=== PATIENT | male | born 1950 | race Caucasian/White ===

== ENCOUNTER 2019-11-08 11:21 | Outpatient (CLI) | payer MEDICARE, OTHER, SELFPAY | END 2019-11-08 11:22 | disposition home or self-care (01) | LOC: RADWPI 11-10 10:04 | PROVIDERS: Family Provider Electrodiagnostic Medicine; PCP Electrodiagnostic Medicine; Visit Provider Anesthesiology Pain Medicine | DX: M48.062 Spinal stenosis, lumbar region with neurogenic claudication (principal); M51.17 Intervertebral disc disorders with radiculopathy, lumbosacral region; Z79.891 Long term (current) use of opiate analgesic | CPT/HCPCS: 99203; 99999 ==

== ENCOUNTER → 2019-11-10 13:00 | Outpatient (BNVA) | payer MEDICARE, OTHER, SELFPAY | PROVIDERS: Family Provider Electrodiagnostic Medicine; PCP Electrodiagnostic Medicine; Visit Provider Anesthesiology Pain Medicine | DX: M51.17 Intervertebral disc disorders with radiculopathy, lumbosacral region (principal); M48.062 Spinal stenosis, lumbar region with neurogenic claudication | CPT/HCPCS: 64483; 64484; J1030; J2001; J3490 ==

== ENCOUNTER 2019-11-11 13:32 | Outpatient (CLI) | payer MEDICARE, OTHER, SELFPAY ==
--- NOTE | 2019-11-11 14:10 | XR_ITS ---
WS: [id number] LATERAL LUMBAR SPINE: 3 view. Lateral radiographs are performed in upright neutral, flexion and extension to the patient's toleranc e. HISTORY: INTERVERTEBRAL DISC DISORDER WITH RADICULOPATHY OF LUMBOSACRAL SPINE. COMPARISON: None available. Normal posterior lumbar alignment. Small osteophytes at the endplates throughout the lumbar spine. Mo derate disc space narrowing L4-5 and L5-S1. With flexion and extension there is no instability. There is very slight retrolisthesis of L2 and L3 with no progression during flexion or extension. Scattered calcification within the aorta. XR/XR lumbar spine f/e only [id number] IMPRESSION: 1. No lumbar spine instability. 2. Moderate degenerative disc disease at L4-5 and L5-S1 with diffuse endplate osteophytes.
== END 2019-11-11 13:33 | disposition home or self-care (01) ==
LOC: RADWPI 13:38
PROVIDERS: Family Provider Electrodiagnostic Medicine; PCP Electrodiagnostic Medicine; Visit Provider Licensed Practical Nurse
DX: M51.17 Intervertebral disc disorders with radiculopathy, lumbosacral region (principal); M47.896 Other spondylosis, lumbar region
CPT/HCPCS: 72120

== ENCOUNTER 2019-11-14 12:44 | Outpatient (CLI) | payer MEDICARE, OTHER, SELFPAY ==
--- NOTE | 2019-11-14 13:04 | MR_ITS ---
WS: [id number] MRI LUMBAR SPINE WITH AND WITHOUT CONTRAST HISTORY: Low back pain COMPARISON: None available. TECHNIQUE: Sagittal and axial multisequence imaging is submitted. Sagittal and axial T1 fat sat seque nces post-ProHance 17 cc IV. Increase in cervical lordosis and thoracic kyphosis. Chronic changes with no interval change. Again noted is lumbarization of S1. Posterior lumbar vertebral bodies are normally aligned. No marrow edema or acute fracture. Mild disc desiccation. Conus terminates normally at L1-2 disc level. L1-L2: Normal. L2-L3: Very mild annular disc bulging with facet and ligamentum flavum arthropathy. No stenosis. L3-L4: Mild annular disc bulging with facet and ligamentum flavum arthropathy. No significant stenosi s. L4-L5: Diffuse annular disc bulging. There is mild ligamentum flavum hypertrophy and facet arthropath y and osteophytes. No significant stenosis. L5-S1: Mild asymmetric disc bulging with a shallow LEFT paracentral protrusion. Annular fissure centr ally with disc extending greatest to the LEFT foramen. There is very slight encroachment upon the LEF T S1 nerve root and posterior displacement within the subarticular recesses. Similar to the prior exa mination. Moderate LEFT subarticular recess and mild LEFT foraminal stenosis. Postcontrast images are also obtained. There is no discitis or osteomyelitis. Laminectomy defect at t he L4-5 level demonstrates normal postoperative long-term changes. No recurrent disc protrusion. Bilateral renal cysts. The largest on the LEFT measures 3.0 cm. Mild atherosclerosis aorta. MR/MR lumbar spine wo/w con [id number] IMPRESSION: 1. Moderate LEFT subarticular recess disc bulging and small protrusion at L5-S 1. There is at least moderate LEFT subarticular recess and mild LEFT foraminal stenosis due to combination of disc and osteophyte disease and facet disease. S imilar to the study of 07/12/2019. 2. No discitis or osteomyelitis. 3. Otherwise no significant central or foraminal stenosis.
== END 2019-11-14 12:45 | disposition home or self-care (01) ==
LOC: RADSHAW 12:48
PROVIDERS: Family Provider Electrodiagnostic Medicine; PCP Electrodiagnostic Medicine; Visit Provider Licensed Practical Nurse
DX: M51.17 Intervertebral disc disorders with radiculopathy, lumbosacral region (principal); M25.78 Osteophyte, vertebrae
CPT/HCPCS: 72158; A9579

== ENCOUNTER → 2019-11-17 08:36 | Outpatient (BNVA) | payer MEDICARE, OTHER, SELFPAY | PROVIDERS: Family Provider Electrodiagnostic Medicine; PCP Electrodiagnostic Medicine; Visit Provider Anesthesiology Pain Medicine | DX: M48.062 Spinal stenosis, lumbar region with neurogenic claudication (principal); M79.604 Pain in right leg | CPT/HCPCS: 99214 ==

== ENCOUNTER → 2019-12-08 09:50 | Outpatient (BNVA) | payer MEDICARE, OTHER, SELFPAY | PROVIDERS: Family Provider Electrodiagnostic Medicine; PCP Electrodiagnostic Medicine; Visit Provider Anesthesiology Pain Medicine | DX: M48.062 Spinal stenosis, lumbar region with neurogenic claudication (principal) | CPT/HCPCS: 99213 ==

== ENCOUNTER → 2020-02-02 10:57 | Outpatient (BNVA) | payer MEDICARE, OTHER, SELFPAY | PROVIDERS: Family Provider Electrodiagnostic Medicine; PCP Electrodiagnostic Medicine; Visit Provider Anesthesiology Pain Medicine | DX: M54.41 Lumbago with sciatica, right side (principal); M48.062 Spinal stenosis, lumbar region with neurogenic claudication | CPT/HCPCS: 99213 ==

== ENCOUNTER → 2020-02-13 14:56 | Outpatient (BNVA) | payer MEDICARE, OTHER, SELFPAY | PROVIDERS: Family Provider Electrodiagnostic Medicine; PCP Electrodiagnostic Medicine; Visit Provider Anesthesiology Pain Medicine | DX: M51.17 Intervertebral disc disorders with radiculopathy, lumbosacral region (principal); M48.062 Spinal stenosis, lumbar region with neurogenic claudication; Z79.891 Long term (current) use of opiate analgesic | CPT/HCPCS: 64483; 64484; J1040; J2001; J3490 ==

== ENCOUNTER → 2020-03-01 13:57 | Outpatient (BNVA) | payer MEDICARE, OTHER, SELFPAY | PROVIDERS: Family Provider Electrodiagnostic Medicine; PCP Electrodiagnostic Medicine; Visit Provider Anesthesiology Pain Medicine | DX: M48.062 Spinal stenosis, lumbar region with neurogenic claudication (principal); M51.17 Intervertebral disc disorders with radiculopathy, lumbosacral region; M51.9 Unspecified thoracic, thoracolumbar and lumbosacral intervertebral disc disorder; Z79.891 Long term (current) use of opiate analgesic | CPT/HCPCS: 99214 ==

== ENCOUNTER 2021-05-29 07:57 | Outpatient (CLI) | payer MEDICARE, OTHER, SELFPAY ==
[2021-05-29 08:06] VITALS: BP 153/92; PULSE 93; RESP 24; TEMP 36.8; O2SAT 96; BMI 26.9
[2021-05-29 08:48] VITALS: BP 160/87; PULSE 91; RESP 24; TEMP 37.2; O2SAT 95
[2021-05-29 09:37] VITALS: BP 167/102; PULSE 92; RESP 18; TEMP 37.8; O2SAT 96
== END 2021-05-29 07:58 | disposition home or self-care (01) ==
LOC: OPS 08:05
PROVIDERS: PCP Electrodiagnostic Medicine; Visit Provider Electrodiagnostic Medicine
DX: U07.1 COVID-19 (principal)
CPT/HCPCS: 96365

== ENCOUNTER → 2021-08-26 13:23 | Outpatient (BNVA) | payer MEDICARE, OTHER, SELFPAY | PROVIDERS: PCP Electrodiagnostic Medicine; Visit Provider Internal Medicine | DX: E11.40 Type 2 diabetes mellitus with diabetic neuropathy, unspecified (principal); E11.65 Type 2 diabetes mellitus with hyperglycemia; E78.5 Hyperlipidemia, unspecified; Z79.84 Long term (current) use of oral hypoglycemic drugs; Z87.891 Personal history of nicotine dependence | CPT/HCPCS: 99204 ==

== ENCOUNTER → 2021-10-02 10:49 | Outpatient (BNVA) | payer MEDICARE, OTHER, SELFPAY | PROVIDERS: PCP Electrodiagnostic Medicine; Visit Provider Internal Medicine | DX: E11.65 Type 2 diabetes mellitus with hyperglycemia (principal); E11.40 Type 2 diabetes mellitus with diabetic neuropathy, unspecified; E78.5 Hyperlipidemia, unspecified; Z79.84 Long term (current) use of oral hypoglycemic drugs | CPT/HCPCS: 99213 ==

== ENCOUNTER → 2021-12-31 13:15 | Outpatient (BNVA) | payer MEDICARE, OTHER, SELFPAY | PROVIDERS: PCP Electrodiagnostic Medicine; Visit Provider Internal Medicine | DX: E11.42 Type 2 diabetes mellitus with diabetic polyneuropathy (principal); E11.65 Type 2 diabetes mellitus with hyperglycemia; E78.2 Mixed hyperlipidemia; Z79.84 Long term (current) use of oral hypoglycemic drugs | CPT/HCPCS: 99214 ==

== ENCOUNTER 2022-08-19 09:10 | Emergency (ER) | payer MEDICARE, OTHER, SELFPAY ==
[2022-08-19 09:29] VITALS: BP 131/69; PULSE 95; RESP 17; TEMP 36.5; O2SAT 93; BMI 22.2
[2022-08-19 09:48] VITALS: BP 116/92; PULSE 95; RESP 18; O2SAT 97
--- NOTE | 2022-08-19 10:01 | W.ED.HA ---
HPI - Headache General: Chief Complaint: Headache Stated Complaint: head pain, unsteady, dizziness Time Seen by Provider: 08/19/22 10:00 History of Present Illness: Mr. Chester is a 71-year-old gentleman with history of hypertension, hyperlipidemia, diabetes presenting to the emergency department due to head pain. Reports onset of symptoms approximately 4 days ago gradually. He endorses pain at the top of his head which has been unrelenting since that time. Intensity of symptoms is severe. Quality is aching and at times sharp. He also notes some worsening pain generally around his body. He endorses lightheadedness and unsteady feeling. Denies history of frequent headaches. Denies history of head trauma. No other associated typical migrainous symptoms. No other specific changes in health, exacerbating, or alleviating factors identified. Onset (ago): day(s) Onset description: gradually Location: other Severity: severe Quality & Timing: aching, throbbing and squeezing Exacerbating factors: none Relieving factors: nothing Associated symptoms: Reports weakness (Generalized) Review of Systems General: Reports: 10 or more systems reviewed and unremarkable except in HPI and below PFSH ED PFSH: Medical History Diabetes type 2, uncontrolled Intervertebral disc disorder with radiculopathy of lumbosacral region Lumbar disc disease Lumbar stenosis with neurogenic claudication Polyneuropathy, peripheral sensorimotor axonal Surgical History History of hernia surgery (2018) Dr. Looney History of lumbar surgery (1969) Herniated disc repair. [facility] in [place] Family History Sister Diabetes Mother Diabetes Social History Smoking and tobacco status: former smoker Alcohol intake: never Household members: spouse Marital status: Current occupational status: retired History of recent travel: No Physical Exam Const: COMMON NORMALS: patient oriented x3 and alert GENERAL APPEARANCE: cooperative and well developed HENMT: COMMON NORMALS: normocephalic and atraumatic HEAD & SCALP: normocephalic and atraumatic THROAT: posterior oropharynx normal Eye: COMMON NORMALS: conjunctivae normal CONJUNCTIVA: Yes conjunctivae normal SCLERA: sclerae normal Neck/C-Spine: COMMON NORMALS: supple GENERAL: Yes trachea midline Resp: COMMON NORMALS: normal respiratory effort and clear to auscultation bilaterally EFFORT & INSPECTION: Yes able to speak in complete sentences AUSCULTATION: clear to auscultation bilaterally Cardio: COMMON NORMALS: regular rate and regular rhythm RATE: regular rate RHYTHM: regular rhythm GI: COMMON NORMALS: Soft to palpation PALPATION: Yes Soft to palpation and No Tenderness to palpation present (GI) Extremity: GENERAL: Yes normal exam except as noted and No edema Neuro: COMMON NORMALS: patient oriented x3, CN's II-XII intact bilaterally, moves all extremities, no focal motor deficits and no sensory deficits noted SENSORIUM/ORIENTATION: Yes alert and No Orientation impaired Psych: COMMON NORMALS: mental status grossly normal and Normal thought process present THOUGHT PROCESS: Normal thought process present Course Vital Signs: Vital signs: Vital Signs Temperature 97.7 F 08/19/22 09:29 Pulse Rate 86 08/19/22 13:04 Respiratory Rate 16 08/19/22 13:04 Blood Pressure 144/107 08/19/22 13:04 Pulse Oximetry 97 08/19/22 13:04 Oxygen Delivery Me thod 08/19/22 09:29 MDM - Headache Medical Decision Making 71-year-old gentleman presenting with headache and generalized illness. Exam as above with no focal neurologic deficits or meningismus. The patient is nontoxic in appearance. Labs with no leukocytosis, normal hemoglobin. Metabolic panel with mild dehydration and hyperglycemia, no evidence of DKA and clinical presentation is not consistent with HHS. Viral testing negative. CT head negative for acute pathology. Upon reassessment with migraine cocktail patient has near complete resolution of symptoms. Most likely etiology patient symptoms of headache. The results of ED evaluation were discussed with the patient including prescriptions and/or symptomatic cares (if applicable) including appropriate and responsible use, followup plan, and return precautions. The patient verbalized understanding and felt safe for discharge. Medical Records I reviewed the patient's medical records. Lab Data I reviewed the patient's lab results. 08/19/22 10:33 08/19/22 10:[address] 08/19/22 10:08 IMPRESSION: 1. No evidence of intracranial hemorrhage or mass effect. 2. No acute intracranial findings. Laboratory Results WBC 9.3 10^3/uL (4.0-10.0) 08/19/22 10:33 RBC 5.55 10^6/uL (4.1-5.3) H 08/19/22 10:33 Hgb 15.6 g/dL (11.7-16.6) 08/19/22 10:33 Hct 48.0 % (42.0-52.0) 08/19/22 10:33 MCV 86.5 fl (80-94) 08/19/22 10:33 MCH 28.1 pg (28.0-34.0) 08/19/22 10:33 MCHC 32.5 g/dL (30.0-36.0) 08/19/22 10:33 RDW 12.9 % (12.1-15.1) 08/19/22 10:33 Plt Count 263 10^3/cmm (130-400) 08/19/22 10:33 MPV 10.0 fL (7.4-10.4) 08/19/22 10:33 Neut % (Auto) 75.3 % 08/19/22 10:33 Lymph % (Auto) 14.7 % 08/19/22 10:33 [place] % (Auto) 7.6 % 08/19/22 10:33 Eos % (Auto) 1.2 % 08/19/22 10:33 Baso % (Auto) 0.5 % 08/19/22 10:33 Neut # (Auto) 7.03 10^3/uL (1.8-7.7) 08/19/22 10:33 Lymph # (Auto) 1.4 10^3/uL (0.8-4.8) 08/19/22 10:33 [place] # (Auto) 0.7 10^3/uL (0.2-0.9) 08/19/22 10:33 Eos # (Auto) 0.1 10^3/uL (0.0-0.8) 08/19/22 10:33 Baso # (Auto) 0.1 10^3/uL (0.0-0.1) 08/19/22 10:33 Nucleated RBC % (auto) 0 % 08/19/22 10:33 Nucleated RBCs # 0.0 /100WBC 08/19/22 10:33 PT 13.50 SECONDS (12.1-14.9) 08/19/22 10:33 INR 1.00 (0.8-1.2) 08/19/22 10:33 APTT 29.2 SECONDS (23.9-36.7) 08/19/22 10:33 Sodium 132 mmol/L (136-145) L 08/19/22 10:33 Potassium 4.9 mmol/L (3.5-5.1) 08/19/22 10:33 Chloride 98 mmol/L (98-107) 08/19/22 10:33 Carbon Dioxide 21 mmol/L (22-29) L 08/19/22 10:33 Anion Gap 17.9 (5-19) 08/19/22 10:33 BUN 31 mg/dL (8-23) H 08/19/22 10:33 Creatinine 0.8 mg/dL (0.7-1.2) 08/19/22 10:33 GFR Calculation Not Reportable 08/19/22 10:33 Glucose 350 mg/dL (65-115) H 08/19/22 10:33 Calculated Osmolality 295 mOsm/kg (285-295) 08/19/22 10:33 Calcium 9.5 mg/dL (8.5-10.5) 08/19/22 10:33 Magnesium 1.9 mg/dL (1.7-2.3) 08/19/22 10:33 Total Bilirubin 0.3 mg/dL (0.15-1.2) 08/19/22 10:33 AST 13 U/L (0-40) 08/19/22 10:33 ALT 17 U/L (0-41) 08/19/22 10:33 Alkaline Phosphatase 71 U/L (40-130) 08/19/22 10:33 Total Protein 7.3 g/dL (6.6-8.7) 08/19/22 10:33 Albumin 3.9 g/dL (3.5-5.2) 08/19/22 10:33 Globulin 3.4 g/dL (1.3-4.6) 08/19/22 10:33 TSH 1.15 uIU/mL (0.27-4.20) 08/19/22 10:33 Influenza Type A Ag negative (Negative) 12/13/22 11:41 Influenza Type B Ag negative (Negative) 08/19/22 11:41 SARS-CoV-2 Ag (Rapid) Negative (Negative) 08/19/22 11:41 Discharge Plan Discharge Patient Disposition: Home Clinical Impression: Headache Condition: Stable Prescriptions: New Reglan 10 mg tablet 10 mg PO Q6H PRN (Reason: headache) Qty: 20 0RF methocarbamol 750 mg tablet 750 mg PO Q6H Qty: 20 0RF No Action metformin 1,000 mg tablet 1,000 mg PO BID gabapentin 600 mg tablet 600 mg PO QID Jardiance 25 mg tablet 25 mg PO DAILY Qty: 90 3RF Rx Instructions: Take one tablet by mouth daily. Victoza 3-Ikko 0.6 mg/0.1 mL (18 mg/3 mL) pen injector See Rx Instructions SUBCUT DAILY Qty: 27 3RF Rx Instructions: 0.6 mg daily for 1 week, then 1.2 mg daily for 1 week, then 1.8 mg daily and continue. SUBCUT daily; glipizide 10 mg tablet 10 mg PO BID lovastatin 40 mg tablet 40 mg PO DAILY Discharge Orders: Discharge ED (Routine); Ordered 08/19/22 Ordered By: Nabil Talbot Referrals: Ac Bah DO [Primary Care Provider] - Discharge Diet: Usual diet Discharge Activity: Increase activity as tolerated Patient Instructions: Dehydration (ED), Acute Headache (ED), Diabetic Hyperglycemia (ED), Pain Management Activity Restrictions/Additional Instructions: Thank you for visiting the emergency department. You were seen and evaluated for headache. The exact cause of headache is unclear though does not appear to need inpatient management at this time. You were found to be mildly dehydrated, please make sure that you are staying hydrated. I will prescribe Reglan and methocarbamol. You may combine the Reglan with medication such as Tylenol, Benadryl, and make sure that you are staying hydrated as mentioned. Please follow-up with your primary care provider. Return to the emergency department for uncontrolled symptoms, any new neurologic symptoms or strokelike symptoms, or anything else that you are concerned about a feel needs emergency department evaluation. Coding Level of Care Code ED Ground [employer]or for Daniel [place] Exam Comprehensive
--- NOTE | 2022-08-19 10:08 | CT_ITS ---
WS: [id number] CT HEAD TECHNIQUE: Noncontrast CT of the head obtained from the skullbase to the vertex. CLINICAL INFORMATION: severe atraumatic head pain COMPARISON: None. DLP: 1224.[address] scans at [facility] use at least one of these dose optimization techniques: automated e xposure control; mA and/or kV adjustment per patient size (includes targeted exams where dose is matc hed to clinical indication); or iterative reconstruction. FINDINGS: No evidence of intracranial hemorrhage or mass effect. Ventricular system and basal cisterns are mendez nt. Mild small vessel changes with mild parenchymal volume loss. No extra-axial fluid collections. No evidence of mass or mass effect. Paranasal sinuses and mastoid air cells are well aerated. Retention cyst RIGHT sphenoid sinus. Normal posterior nasopharynx. Normal parapharyngeal fat. .Normal visualized soft tissues. CT/CT head wo con* [id number] IMPRESSION: 1. No evidence of intracranial hemorrhage or mass effect. 2. No acute intracranial findings.
[2022-08-19] MEDS: diphenhydrAMINE 50 mg/mL SDV 1mL 12.5 MG IVP (10:28)
[2022-08-19] MEDS: magnesium sulfate premix 2 GM/50 ML PIGGYBACK IV (10:28)
[2022-08-19] MEDS: metoclopramide 5 mg/mL SDV 2 mL 10 MG IVP (10:29)
[2022-08-19] MEDS: sodium chloride 0.9% 500 ML IV (10:29)
[2022-08-19 10:51] LABS: Basophils # 0.1 10^3/uL (0.0-0.1); Basophils % 0.5 %; Eosinophils # 0.1 10^3/uL (0.0-0.8); Eosinophils % 1.2 %; Hemoglobin 15.6 g/dL (11.7-16.6); Lymphocytes # 1.4 10^3/uL (0.8-4.8); Lymphocytes % 14.7 %; Mean Corpuscular HGB Conc 32.5 g/dL (30.0-36.0); Mean Corpuscular Hemoglobin 28.1 pg (28.0-34.0); Mean Corpuscular Volume 86.5 fl (80-94); Monocytes # 0.7 10^3/uL (0.2-0.9); Monocytes % 7.6 %; Neutrophils # 7.03 10^3/uL (1.8-7.7); Neutrophils % 75.3 %; Nucleated Red Blood Cells % 0 %; Platelet Count 263 10^3/cmm (130-400); Red Blood Count 5.55 10^6/uL (4.1-5.3); Red Cell Distribution Width 12.9 % (12.1-15.1); White Blood Count 9.3 10^3/uL (4.0-10.0)
[2022-08-19 11:05] LABS: Partial Thromboplastin Time 29.2 SECONDS (23.9-36.7)
[2022-08-19 11:28] LABS: Alanine Aminotransferase 17 U/L (0-41); Albumin Level 3.9 g/dL (3.5-5.2); Alkaline Phosphatase 71 U/L (40-130); Anion Gap 17.9 (5-19); Aspartate Amino Transferase 13 U/L (0-40); Blood Urea Nitrogen 31 mg/dL (8-23); Calcium 9.5 mg/dL (8.5-10.5); Carbon Dioxide 21 mmol/L (22-29); Chloride 98 mmol/L (98-107); Globulin 3.4 g/dL (1.3-4.6); Glucose 350 mg/dL (65-115); Magnesium 1.9 mg/dL (1.7-2.3); Osmolality Calculated 295 mOsm/kg (285-295); Potassium 4.9 mmol/L (3.5-5.1); Sodium 132 mmol/L (136-145); Thyroid Stimulating Hormone 1.15 uIU/mL (0.27-4.20); Total Bilirubin 0.3 mg/dL (0.15-1.2); Total Protein 7.3 g/dL (6.6-8.7)
[2022-08-19 11:30] VITALS: BP 121/81; PULSE 82; RESP 16; O2SAT 97
[2022-08-19 11:32] VITALS: RESP 16; O2SAT 94
[2022-08-19] MEDS: morphine 4 mg/mL SDV 1 mL IVP (11:32)
[2022-08-19] MEDS: ketorolac 30 mg/mL INJ 15 MG IVP (11:32)
[2022-08-19 12:25] LABS: Influenza A by IFA negative (Negative); Influenza B by IFA negative (Negative)
[2022-08-19 12:27] LABS: SARS Covid-2 Antigen Negative (Negative)
[2022-08-19 13:04] VITALS: BP 144/107; PULSE 86; RESP 16; O2SAT 97
== END 2022-08-19 13:06 | disposition home or self-care (01) ==
PROVIDERS: Emergency Provider Emergency Medicine; PCP Electrodiagnostic Medicine
DX: R51.9 Headache, unspecified (principal); Z79.84 Long term (current) use of oral hypoglycemic drugs; Z20.822 Contact with and (suspected) exposure to COVID-19; E11.9 Type 2 diabetes mellitus without complications; Z87.891 Personal history of nicotine dependence
CPT/HCPCS: 70450; 80053; 83735; 84443; 85025; 85610; 85730; 87426; 87804; 96365; 96375; 99285; J1200; J1885; J2270; J2765; J3475; J7040

== ENCOUNTER 2022-08-27 09:45 | Emergency (ER) | payer MEDICARE, OTHER, SELFPAY ==
[2022-08-27] VITALS (64 sets, daily range): BP systolic 118–153; BP diastolic 79–107; PULSE 81–97; RESP 16–32; TEMP 36.9; O2SAT 92–99
--- NOTE | 2022-08-27 09:58 | W.ED.FALL ---
HPI - Fall General: Chief Complaint: Fall Stated Complaint: fall, possible rib injury, SOB Time Seen by Provider: 08/27/22 09:58 History of Present Illness: Mr. Vazquez is a 71-year-old gentleman with history of diabetes, hypertension, hyperlipidemia, neuropathy presenting to the emergency department to fall with left-sided pain. Reports yesterday following in his driveway and losing consciousness. Unsure of how long he was on the ground. Woke up with pain on the left side and since that time pain is persisted. Mostly left rib though some shoulder and hip discomfort. Rib pain is sharp and makes him feel short of breath, worse with inspiration palpation and movement. Intensity is moderate to severe. Has tried aspirin at home with no significant improvement. No other specific changes in health, exacerbating, or alleviating factors identified. Onset (ago): day(s) Fall from: standing Fall witnessed: no Place fall occurred: home Loss of consciousness: Yes Prolonged down time: unclear Symptoms prior to fall: lightheadedness Context: history of frequent falls Location of injury: head, chest, abdomen and pelvis Severity: moderate Quality: sharp and stabbing Review of Systems General: Reports: 10 or more systems reviewed and unremarkable except in HPI and below PFSH ED PFSH: Medical History Diabetes type 2, uncontrolled Intervertebral disc disorder with radiculopathy of lumbosacral region Lumbar disc disease Lumbar stenosis with neurogenic claudication Polyneuropathy, peripheral sensorimotor axonal Surgical History History of hernia surgery (2018) Dr. Looney History of lumbar surgery (1969) Herniated disc repair. [facility] in [place] Family History Sister Diabetes Mother Diabetes Social History Smoking and tobacco status: former smoker Alcohol intake: never Household members: spouse Marital status: Current occupational status: retired History of recent travel: No Physical Exam Const: COMMON NORMALS: alert GENERAL APPEARANCE: cooperative and well developed HENMT: COMMON NORMALS: normocephalic and atraumatic HEAD & SCALP: normocephalic and atraumatic OTHER: No moctezuma signs or raccoon eyes. No otorrhea or rhinorrhea. Jaw alignment normal. Dentition baseline. No obvious bony step-offs. No septal hematoma. No evidence of ocular entrapment. Eye: COMMON NORMALS: conjunctivae normal CONJUNCTIVA: Yes conjunctivae normal SCLERA: sclerae normal Neck/C-Spine: COMMON NORMALS: supple GENERAL: Yes trachea midline Resp: COMMON NORMALS: clear to auscultation bilaterally EFFORT & INSPECTION: Yes able to speak in complete sentences AUSCULTATION: clear to auscultation bilaterally Cardio: COMMON NORMALS: regular rate and regular rhythm RATE: regular rate RHYTHM: regular rhythm GI: COMMON NORMALS: Soft to palpation PALPATION: Yes Soft to palpation and No Tenderness to palpation present (GI) Back/Pelvis: COMMON NORMALS: no thoracic nor lumbar tenderness Extremity: GENERAL: Yes normal exam except as noted and No edema Neuro: COMMON NORMALS: moves all extremities SENSORIUM/ORIENTATION: Yes alert and No Orientation impaired Psych: COMMON NORMALS: mental status grossly normal and Normal thought process present THOUGHT PROCESS: Normal thought process present Course Vital Signs: Vital signs: Vital Signs Temperature 98.5 F 08/27/22 09:51 Pulse Rate 87 08/27/22 16:00 Respiratory Rate 16 08/27/22 16:00 Blood Pressure 130/85 08/27/22 16:15 Pulse Oximetry 94 08/27/22 16:00 Oxygen Delivery Me thod 08/27/22 09:51 MDM - Fall Medical Decision Making 71-year-old male presenting with fall and generalized associated symptoms. Exam as above. No exam performed. EKG shows sinus rhythm with nonspecific ST segment abnormalities and interventricular conduction delay, no STEMI. Labs without significant hematologic abnormality. Metabolic panel with mild dehydration though not entirely similar to recent prior. Glucose is elevated with negative urine ketones, no evidence of DKA clinical history provided. Given physical exam findings CT imaging is warranted. Incidental findings discussed. Acute traumatic injury including rib fractures including 3 continuous ribs and 6th rib in multiple locations. During ED course patient given insulin and pain control. Given 3 or greater continuous retractors patient is at high risk for mortality and morbidity associated with injury. He requires transfer for further trauma service evaluation. Patient accepted by Dr. Bah at [facility] ED as a trauma transfer. The results of ED evaluation were discussed with the patient including plan for transfer due to requirement for level of care not available if discharged to prevent significant worsening/deterioration. Patient agreeable with plan. Patient left the emergency department with EMS in satisfactory condition. Medical Records I reviewed the patient's medical records. Lab Data I reviewed the patient's lab results. 08/27/22 10:40 08/27/22 10:40 Radiology Impressions Cervical Spine CT 08/27/22 10:09 IMPRESSION: 1. No acute cervical spine fracture. 2. Multilevel facet joint arthritis with central and foraminal stenoses. Head CT 08/27/22 10:09 IMPRESSION: 1. No acute intracranial hemorrhage or edema. 2. Mild atrophy and mild small vessel ischemic disease. Abdomen/Pelvis CT 08/27/22 10:10 IMPRESSION: 1. No acute abdominal or pelvic abnormalities. 2. No visceral organ injury. 3. Extensive diverticulosis without acute diverticulitis throughout the colon. 4. Moderately distended urinary bladder. 5. Very small LEFT pleural effusion. 6. Bilateral renal cysts. Chest CT 08/27/22 12:33 IMPRESSION: 1. Small LEFT pleural effusion. 2. Acute left-sided rib fractures. LEFT sixth rib is fractured in [address]. 3. Minimally comminuted displaced LEFT posterior eighth rib fracture. 4. Nondisplaced posterior lateral LEFT seventh rib fracture. Laboratory Results WBC 8.0 10^3/uL (4.0-10.0) 08/27/22 10:40 RBC 5.41 10^6/uL (4.1-5.3) H 08/27/22 10:40 Hgb 15.2 g/dL (11.7-16.6) 08/27/22 10:40 Hct 47.0 % (42.0-52.0) 08/27/22 10:40 MCV 86.9 fl (80-94) 08/27/22 10:40 MCH 28.1 pg (28.0-34.0) 08/27/22 10:40 MCHC 32.3 g/dL (30.0-36.0) 08/27/22 10:40 RDW 13.0 % (12.1-15.1) 08/27/22 10:40 Plt Count 273 10^3/cmm (130-400) 08/27/22 10:40 MPV 10.1 fL (7.4-10.4) 08/27/22 10:40 Neut % (Auto) 69.1 % 08/27/22 10:40 Lymph % (Auto) 18.0 % 08/27/22 10:40 [place] % (Auto) 8.0 % 08/27/22 10:40 Eos % (Auto) 3.4 % 08/27/22 10:40 Baso % (Auto) 0.4 % 08/27/22 10:40 Neut # (Auto) 5.56 10^3/uL (1.8-7.7) 08/27/22 10:40 Lymph # (Auto) 1.5 10^3/uL (0.8-4.8) 08/27/22 10:40 [place] # (Auto) 0.6 10^3/uL (0.2-0.9) 08/27/22 10:40 Eos # (Auto) 0.3 10^3/uL (0.0-0.8) 08/27/22 10:40 Baso # (Auto) 0.0 10^3/uL (0.0-0.1) 08/27/22 10:40 Nucleated RBC % (auto) 0 % 08/27/22 10:40 Nucleated RBCs # 0.0 /100WBC 08/27/22 10:40 Sodium 130 mmol/L (136-145) L 08/27/22 10:40 Potassium 4.9 mmol/L (3.5-5.1) 08/27/22 10:40 Chloride 94 mmol/L (98-107) L 08/27/22 10:40 Carbon Dioxide 21 mmol/L (22-29) L 08/27/22 10:40 Anion Gap 19.9 (5-19) H 08/27/22 10:40 BUN 35 mg/dL (8-23) H 08/27/22 10:40 Creatinine 0.9 mg/dL (0.7-1.2) 08/27/22 10:40 GFR Calculation Not Reportable 08/27/22 10:40 Glucose 460 mg/dL (65-115) H 08/27/22 10:40 POC Glucose 331 mg/dL (70-110) H 08/27/22 13:39 Calculated Osmolality 298 mOsm/kg (285-295) H 08/27/22 10:40 Calcium 9.8 mg/dL (8.5-10.5) 08/27/22 10:40 Total Bilirubin 0.3 mg/dL (0.15-1.2) 08/27/22 10:40 AST 12 U/L (0-40) 08/27/22 10:40 ALT 13 U/L (0-41) 08/27/22 10:40 Alkaline Phosphatase 65 U/L (40-130) 08/27/22 10:40 Troponin T Baseline 16 ng/L (0-15) H 08/27/22 10:40 Troponin T 120 Minute 16.08 ng/L (0-15) H 08/27/22 12:41 Delta Troponin T 0.08 ABS# (0-10) 08/27/22 12:41 Total Protein 7.2 g/dL (6.6-8.7) 08/27/22 10:40 Albumin 3.9 g/dL (3.5-5.2) 08/27/22 10:40 Globulin 3.3 g/dL (1.3-4.6) 08/27/22 10:40 Urine Color Yellow (Yellow) 08/27/22 11:00 Urine Appearance Clear (CLEAR) 08/27/22 11:00 Urine pH 6 (5-7) 08/27/22 11:00 Ur Specific [place] 1.010 (1.005-1.030) 08/27/22 11:00 Urine Protein Neg (Negative) 08/27/22 11:00 Urine Glucose (UA) 4+ (Normal) H 08/27/22 11:00 Urine Ketones Negative (Negative) 08/27/22 11:00 Urine Blood Neg (Negative) 08/27/22 11:00 Urine Nitrate Negative (Negative) 08/27/22 11:00 Urine Bilirubin Neg (Negative) 08/27/22 11:00 Urine Urobilinogen Norm mg/dL (Negative) 08/27/22 11:00 Ur Leukocyte Esterase Negative (Negative) 08/27/22 11:00 Discharge Plan Discharge Patient Disposition: Transfer to ED Clinical Impression: Fracture, ribs, Syncope, Concussion with loss of consciousness Condition: Stable Prescriptions: No Action Victoza 3-Kiko 0.6 mg/0.1 mL (18 mg/3 mL) pen injector See Rx Instructions SUBCUT DAILY Qty: 27 3RF Rx Instructions: 0.6 mg daily for 1 week, then 1.2 mg daily for 1 week, then 1.8 mg daily and continue. SUBCUT daily; lovastatin 40 mg tablet 40 mg PO QPM lisinopril 20 mg tablet 20 mg PO QAM methocarbamol 750 mg tablet 750 mg PO Q6H PRN (Reason: Muscle Spasm) Jardiance 25 mg tablet 25 mg PO QAM hydrocodone-acetaminophen 5-325 mg tablet 1 tab PO Q6H PRN (Reason: pain) Qty: 14 0RF metoclopramide HCl [Reglan] 10 mg tablet 10 mg PO Q6H PRN (Reason: headache) Qty: 20 0RF Tylenol 325 mg Tablet 650 mg PO QID PRN (Reason: Pain) sertraline 100 mg tablet 200 mg PO BEDTIME docusate sodium 50 mg Capsule 50 mg PO DAILY omeprazole 40 mg capsule,delayed release(DR/EC) 40 mg PO DAILY tramadol 50 mg tablet 50 mg PO TID Miralax 17 gram/dose Powder 4 g PO DAILY PRN (Reason: Constipation) lidocaine 4 % Gel 1 applic TOPICAL TID PRN (Reason: Pain) aspirin 81 mg Capsule 81 mg PO DAILY tramadol 50 mg tablet 50 mg PO Q6H PRN (Reason: pain) Qty: 20 0RF Flomax 0.4 mg capsule 0.4 mg PO DAILY Qty: 30 0RF Referrals: Ac Bah DO [Primary Care Provider] - Coding Level of Care Code ED Multi Operation Machine Operator for g Fwd Exam Comprehensive
--- NOTE | 2022-08-27 10:09 | ECG_ITS ---
[facility] Test Date: 2022-08-27 Pat Name: Gerald Chester Department: Room: Gender: Male Manager Garden: : 1950 Requested By: Nabil Talbot Order Number: [id number] Erica MD: Nilda Matson M.D. Measurements Intervals [place] Rate: 72 P: -8 ND: 187 QRS: 152 QRSD: 95 T: 16 QT: 374 QTc: 411 Interpretive Statements SINUS RHYTHM ANTEROSEPTAL MYOCARDIAL INFARCTION , OF INDETERMINATE AGE [40+ ms Q WAVE IN V1-V4] Compared to ECG 01/29/2017 05:42:24 Incomplete right bundle-branch block now present Myocardial infarct finding still present Electronically Signed On 08-28-2022 9:15:15 PATIENT SERVICES SPECIALIST by Nilda Matson M.D. [email or web address]
--- NOTE | 2022-08-27 10:09 | CT_ITS ---
WS: [id number] CT CERVICAL SPINE HISTORY: fall, headstrike TECHNIQUE: Contiguous 2.0 mm axial imaging performed through the entire cervical spine. Sagittal and coronal reformats also performed. All CT scans at [facility] use at least one of these dose o ptimization techniques: automated exposure control; mA and/or kV adjustment per patient size (include s targeted exams where dose is matched to clinical indication); or iterative reconstruction. DLP: 1301.38 mGy.cm COMPARISON: None available. Moderate cervical spondylosis. Degenerative disc disease and osteophytosis. Marked narrowing of the p redental articulation. Craniocervical junction is normally aligned. Facet joints are all narrowed. La teral masses of C1 and C2 are aligned. Odontoid is intact. Marked facet joint arthritis throughout the cervical spine with foraminal stenoses at multiple levels . No focal disc protrusions. Moderate central and bilateral foraminal narrowing at C3-4, C4-5 and C5- 6. Lung apices are clear. Heavy calcification in the carotid arteries. CT/CT cervical spin wo con* [id number] IMPRESSION: 1. No acute cervical spine fracture. 2. Multilevel facet joint arthritis with central and foraminal stenoses.
--- NOTE | 2022-08-27 10:09 | CT_ITS ---
WS: [id number] CT HEAD NONCONTRAST HISTORY: fall, LOC TECHNIQUE: Contiguous axial imaging performed through the brain in 2.5 mm imaging. Bone and soft tiss ue windows. Sagittal and coronal reformats reviewed. All CT scans at [facility] use at least one of these dose optimization techniques: automated exposure control; mA and/or kV adjustment per pa tient size (includes targeted exams where dose is matched to clinical indication); or iterative recon struction. DLP: 1301.38 mGy.cm COMPARISON: 08/19/2022 No acute intracranial hemorrhage, midline shift or mass effect. Mild atrophy and small vessel ischemic disease. No prior large territory infarct. Ventricles: Normal size with no hydrocephalus. No inferior displacement of the cerebellar tonsils. Paranasal sinuses: Mucous retention cyst versus polyp RIGHT sphenoid. Mastoid air cells: Well pneumatized. Calvarium and scalp: Skull is intact with no soft tissue edema or swelling. CT/CT head wo con* [id number] IMPRESSION: 1. No acute intracranial hemorrhage or edema. 2. Mild atrophy and mild small vessel ischemic disease.
--- NOTE | 2022-08-27 10:10 | CT_ITS ---
WS: [id number] CT ABDOMEN AND PELVIS WITH CONTRAST HISTORY: fall, L sided chest and abd pain TECHNIQUE: Imaging performed of the abdomen and pelvis with IV contrast. Single phase imaging of the abdomen. Coronal and sagittal reformats are submitted. All CT scans at [facility] use at [address] one of these dose optimization techniques: automated exposure control; mA and/or kV adjustment per patient size (includes targeted exams where dose is matched to clinical indication); or iterative re construction. IV CONTRAST: Omnipaque 350; 100 mL IV. Oral contrast: No DLP: 757.25 mGy.cm COMPARISON: 01/28/2017 Lower thorax: Mild dependent changes at the lung bases. Very small LEFT pleural effusion. Heart is no rmal size. Small hiatal hernia. Liver/biliary system: Normal size with no intrahepatic dilatation. Gallbladder: Normal. No gallstones or wall thickening. No pericholecystic fluid. Pancreas: Normal size pancreas and pancreatic duct. No adjacent inflammation. Spleen: Normal size spleen. No mass or infarct. Adrenal glands: Normal. Right kidney: Normal size kidney. There are multiple cortical hypodensities consistent with cysts. No solid mass. No obstruction. Left kidney: Normal size with multiple cortical hypodensities consistent with cysts. Some of these ar e too small to characterize. No obstruction. Aorta: Mild atherosclerosis with no aneurysm. Lymphadenopathy: None. Free fluid: None. GI tract: No GI tract obstruction. Normal appearance of the stomach. No small bowel obstruction. No e vidence for appendicitis. The appendix is not definitely identified. Numerous diverticula throughout the colon. No evidence for acute diverticulitis. Abdominal wall: Fat containing umbilical hernia. Pelvis: No free fluid or adenopathy within the pelvis. Moderately distended urinary bladder. Minimal prostate enlargement. Bones: Prior RIGHT hip arthroplasty. CT/CT abdomen pelvis w con* [id number] IMPRESSION: 1. No acute abdominal or pelvic abnormalities. 2. No visceral organ injury. 3. Extensive diverticulosis without acute diverticulitis throughout the colon. 4. Moderately distended urinary bladder. 5. Very small LEFT pleural effusion. 6. Bilateral renal cysts.
[2022-08-27] MEDS: morphine 4 mg/mL SDV 1 mL IVP ×2 (10:55→15:00)
[2022-08-27 10:57] LABS: Basophils % 0.4 %; Eosinophils # 0.3 10^3/uL (0.0-0.8); Eosinophils % 3.4 %; Hemoglobin 15.2 g/dL (11.7-16.6); Lymphocytes # 1.5 10^3/uL (0.8-4.8); Mean Corpuscular HGB Conc 32.3 g/dL (30.0-36.0); Mean Corpuscular Hemoglobin 28.1 pg (28.0-34.0); Mean Corpuscular Volume 86.9 fl (80-94); Mean Platelet Volume 10.1 fL (7.4-10.4); Monocytes # 0.6 10^3/uL (0.2-0.9); Neutrophils # 5.56 10^3/uL (1.8-7.7); Neutrophils % 69.1 %; Nucleated Red Blood Cells % 0 %; Platelet Count 273 10^3/cmm (130-400); Red Blood Count 5.41 10^6/uL (4.1-5.3)
[2022-08-27 11:09] LABS: Add Urine Microscopic? NO; Charge for UA Resulting for Rev
[2022-08-27 11:13] LABS: Troponin(5th) Baseline 16 ng/L (0-15)
[2022-08-27 11:15] LABS: Alanine Aminotransferase 13 U/L (0-41); Albumin Level 3.9 g/dL (3.5-5.2); Alkaline Phosphatase 65 U/L (40-130); Anion Gap 19.9 (5-19); Aspartate Amino Transferase 12 U/L (0-40); Blood Urea Nitrogen 35 mg/dL (8-23); Calcium 9.8 mg/dL (8.5-10.5); Carbon Dioxide 21 mmol/L (22-29); Chloride 94 mmol/L (98-107); Globulin 3.3 g/dL (1.3-4.6); Glucose 460 mg/dL (65-115); Osmolality Calculated 298 mOsm/kg (285-295); Potassium 4.9 mmol/L (3.5-5.1); Sodium 130 mmol/L (136-145); Total Bilirubin 0.3 mg/dL (0.15-1.2); Total Protein 7.2 g/dL (6.6-8.7)
[2022-08-27 11:23] LABS: Bilirubin Urine Neg (Negative); Blood Urine Neg (Negative); Glucose Urine UA 4+ (Normal); Ketones Urine Negative (Negative); Leukocyte Esterase Urine Negative (Negative); Nitrate Urine Negative (Negative); Protein Urine Neg (Negative); Urine Appearance Clear (CLEAR); Urine Color Yellow (Yellow); Urobilinogen Urine Norm (Negative); pH Urine 6 (5-7)
[2022-08-27] MEDS: iohexol 350 mg/mL 500 mL Btl (per mL) IV (12:09)
--- NOTE | 2022-08-27 12:09 | ECG_ITS ---
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 Measurements Intervals Sheldon Rate: 83 P: 58 CA: 232 QRS: 269 QRSD: 100 T: 53 QT: 367 QTc: 432 Interpretive Statements SINUS RHYTHM WITH FIRST DEGREE AV BLOCK POSSIBLE LEFT ATRIAL ENLARGEMENT [-0.1mV P-WAVE IN V1/V2] ANTEROSEPTAL MYOCARDIAL INFARCTION , OF INDETERMINATE AGE [40+ ms Q WAVE IN V1-V4] Compared to ECG 08/27/2022 10:23:14 First degree AV block now present Incomplete right bundle-branch block no longer present Myocardial infarct finding still present Electronically Signed On 08-28-2022 9:23:43 NETWORK SECURITY OFFICER by Nilda Matson M.D. [id number]
--- NOTE | 2022-08-27 12:33 | CT_ITS ---
WS: [id number] CT CHEST WITHOUT INTRAVENOUS CONTRAST HISTORY: Fall with rib pain. TECHNIQUE: Contiguous 5 mm axial imaging performed on the thorax. Coronal and sagittal reformats are submitted. All CT scans at [facility] use at least one of these dose optimization techniques: automated exposure control; mA and/or kV adjustment per patient size (includes targeted exams where dose is matched to clinical indication); or iterative reconstruction. CONTRAST: None DLP: 421.88 mGy.cm COMPARISON: None available. Lungs and central airway: Chronic emphysema. No pulmonary mass, nodule or contusion. Pleura: Small LEFT pleural effusion. Heart and pericardium: Normal size heart. Coronary artery calcifications. Mediastinum and estrella: No mediastinum or hilar adenopathy. Vessels: Normal size aortic and pulmonary artery. No coronary artery calcifications. Chest wall and lower neck: No soft tissue masses. Upper abdomen: Negative. Osseous structures: LEFT acute rib fractures. Nondisplaced fracture of the lateral and posterior late ral sixth rib. Sixth rib is fractured in [address] Nondisplaced fracture posterior lateral seventh ri b. Comminuted minimally displaced fracture in the posterior [address]/CT chest wo con [id number] IMPRESSION: 1. Small LEFT pleural effusion. 2. Acute left-sided rib fractures. LEFT sixth rib is fractured in 2 separate p laces. 3. Minimally comminuted displaced LEFT posterior eighth rib fracture. 4. Nondisplaced posterior lateral LEFT seventh rib fracture.
[2022-08-27 13:11] LABS: Troponin 5 2HR 16.08 ng/L (0-15)
[2022-08-27 13:18] LABS: Troponin 5 2HR Delta 0.08 ABS# (0-10)
[2022-08-27 13:43] LABS: Glucose Point of Care 331 mg/dL (70-110)
[2022-08-27] MEDS: insulin regular-human 100 units/1 mL 10 UNIT IVP (13:45)
== END 2022-08-27 16:10 ==
PROVIDERS: Emergency Provider Emergency Medicine; PCP Electrodiagnostic Medicine
DX: S22.42XA Multiple fractures of ribs, left side, initial encounter for closed fracture (principal); S06.0X9A Concussion with loss of consciousness of unspecified duration, initial encounter; E11.65 Type 2 diabetes mellitus with hyperglycemia; W19.XXXA Unspecified fall, initial encounter
CPT/HCPCS: 36416; 70450; 71250; 72125; 74177; 80053; 81003; 82962; 84484; 85025; 93005; 96374; 96375; 99285; J1815; J2270; Q9967

== ENCOUNTER 2022-09-03 12:29 | Emergency (ER) | payer MEDICARE, OTHER, SELFPAY ==
[2022-09-03 12:49] VITALS: BP 103/66; PULSE 112; RESP 18; TEMP 36.4; O2SAT 92; BMI 14.8
[2022-09-03 14:11] LABS: Basophils % 0.4 %; Eosinophils # 0.1 10^3/uL (0.0-0.8); Eosinophils % 0.7 %; Hematocrit 49.8 % (42.0-52.0); Hemoglobin 15.6 g/dL (11.7-16.6); Lymphocytes # 0.8 10^3/uL (0.8-4.8); Lymphocytes % 8.6 %; Mean Corpuscular HGB Conc 31.3 g/dL (30.0-36.0); Mean Corpuscular Hemoglobin 27.8 pg (28.0-34.0); Mean Corpuscular Volume 88.8 fl (80-94); Mean Platelet Volume 9.9 fL (7.4-10.4); Monocytes # 1.2 10^3/uL (0.2-0.9); Monocytes % 12.5 %; Neutrophils # 7.32 10^3/uL (1.8-7.7); Neutrophils % 76.6 %; Nucleated Red Blood Cells % 0.2 %; Platelet Count 332 10^3/cmm (130-400); Red Blood Count 5.61 10^6/uL (4.1-5.3); Red Cell Distribution Width 13.3 % (12.1-15.1); White Blood Count 9.6 10^3/uL (4.0-10.0)
[2022-09-03 14:31] LABS: Alanine Aminotransferase 21 U/L (0-41); Albumin Level 4.1 g/dL (3.5-5.2); Alkaline Phosphatase 95 U/L (40-130); Anion Gap 17.4 (5-19); Aspartate Amino Transferase 13 U/L (0-40); Blood Urea Nitrogen 30 mg/dL (8-23); Carbon Dioxide 26 mmol/L (22-29); Chloride 93 mmol/L (98-107); Globulin 3.9 g/dL (1.3-4.6); Glucose 262 mg/dL (65-115); Osmolality Calculated 287 mOsm/kg (285-295); Potassium 5.4 mmol/L (3.5-5.1); Sodium 131 mmol/L (136-145); Total Bilirubin 0.4 mg/dL (0.15-1.2)
--- NOTE | 2022-09-03 15:02 | ED_ITS ---
HPI - Male Genitourinary General: Chief complaint: Urogenital-Male Stated complaint: can't uninate and weak. Time Seen by Provider: 09/03/22 14:48 History of Present Illness: 71-year-old male who presents with generalized weakness and inability to urinate. Patient states he has not urinated normally since yesterday. He has been having frequent urination with just dribbling. Today he was more weak than usual, typically he can walk with assistance of a cane. Today has been too weak to walk. He has had an episode of falling and had a syncopal episode in the bathroom. Patient denies fever. He states he has had decreased p.o. intake of food and fluids today. He was just hospitalized 5 days ago for a fall with multiple rib fractures, hospitalized at [facility]. He is not taking pain medication, he has out. No prior history of urinary retention or prostate hypertrophy. He is a type II diabetic. He also has a history of lumbar stenosis. He denies bowel incontinence. Review of Systems Const: Reports: fatigue and malaise; Denies: fever(s), chills or body aches Eyes: Denies: change in vision ENMT: Denies: throat pain or nasal congestion Card: Reports: lightheadedness and syncope; Denies: chest pain Resp: Reports: productive cough (green sputum); Denies: dyspnea GI: Reports: abdominal pain; Denies: fecal incontinence : Reports: difficulty urinating, urinary frequency and urinary dribbling Musc: Reports: muscle weakness Skin/Breast: Denies: rash Neuro: Reports: weakness in extremities; Denies: numbness in extremities PFS ED PFSH: Medical History Diabetes type 2, uncontrolled Intervertebral disc disorder with radiculopathy of lumbosacral region Lumbar disc disease Lumbar stenosis with neurogenic claudication Polyneuropathy, peripheral sensorimotor axonal Surgical History History of hernia surgery (2018) Dr. Looney History of lumbar surgery (1969) Herniated disc repair. [facility] in [place] Family History Sister Diabetes Mother Diabetes Social History Smoking and tobacco status: former smoker Alcohol intake: never Household members: spouse Marital status: Current occupational status: retired History of recent travel: No Physical Exam Const: COMMON NORMALS: no acute distress, patient oriented x3 and alert HENMT: COMMON NORMALS: normocephalic and atraumatic HEAD & SCALP: normocephalic and atraumatic Eye: COMMON NORMALS: Equal, round and reactive pupils present and EOMs intact bilaterally PUPIL: Yes Equal, round and reactive pupils present Neck/C-Spine: CERVICAL SPINE: Yes cervical ROM normal and No Cervical spine tenderness Chest: OTHER: Chest wall is tender Resp: COMMON NORMALS: normal respiratory effort, No use of accessory muscles and clear to auscultation bilaterally AUSCULTATION: clear to auscultation bilaterally Cardio: COMMON NORMALS: regular rate and regular rhythm RATE: regular rate RHYTHM: regular rhythm OTHER: Abdomen is tender, distended. No rebound or guarding. : COMMON NORMALS: Yes no CVA tenderness BLADDER/KIDNEY EXAM: Yes no CVA tenderness Back/Pelvis: COMMON NORMALS: no CVA tenderness Extremity: OTHER: No swelling or edema. Neuro: COMMON NORMALS: patient oriented x3 SENSORIUM/ORIENTATION: Yes alert OTHER: Bilateral lower extremity weakness. Course ED course: Hopkins catheters been placed with 1600 cc of urine output. Believe the Hopkins catheter in place for discharge home. We will treat the patient with Flomax 0.4 mg daily. Have also given him a refill on his tramadol 50 mg to take 1 every 4-6 hours as needed for pain, quantity of 20. He needs to make sure he is drinking plenty of fluids as I suspect dehydration is contributing things as well. His potassium was slightly elevated here but I feel with fluids and dietary discretion at home that this is adequate for management of that. Patient has had MRIs of his thoracic and lumbar spine which do not show cauda equina or any other acute findings. He does have multiple degenerative changes which are chronic. At this time I do not find another emergent condition that requires further work-up or admission. Reevaluation(s): Reevaluation #1: Patient has had about 1600 cc of urine out put in his Hopkins catheter. Abdominal discomfort much improved. We will leave the Hopkins catheter in place and discharged with a leg bag and have him follow-up with his primary care doctor to have it removed in a few days. Suspect that it might be related to the pain medication he has been on for his rib fractures. Vital Signs: Vital signs: Vital Signs Temperature 97.6 F 09/03/22 12:49 Pulse Rate 103 H 09/03/22 17:11 Respiratory Rate 16 09/03/22 17:11 Blood Pressure 109/56 09/03/22 17:11 Pulse Oximetry 95 09/03/22 17:11 Oxygen Delivery Me thod 09/03/22 17:11 MDM - Male Medical Decision Making 71-year-old male who presents with bilateral lower extremity weakness, urinary incontinence. He has a history of lumbar stenosis with neurogenic claudication. Patient is having urinary retention now incontinence had a syncopal episode in the bathroom here. Concern for cauda equina. Patient also could have a electrolyte issues causing him to be weak as well as a UTI. We will start an IV, give him an IV fluid bolus as his blood pressures in the 90s. Will obtain labs and place a Hopkins. Medical Records I reviewed the patient's medical records. Lab Data 09/03/22 13:45 09/03/22 13:45 Radiology Impressions Lumbar Spine MRI 09/03/22 15:07 IMPRESSION: 1. Mild lumbar curve. No acute compression. No high-grade central canal stenosis. 2. Mild central canal stenosis L2-L3 and L3-L4 unchanged from previous. Impingement on the RIGHT subarticular recess L3-L4. 3. Mild annular bulging L4-L5 with slight contact of the traversing L5 nerve roots bilaterally. 4. Disc bulge L5-S1 slightly impinges the LEFT S1 nerve root in the subarticular recess. This is unchanged from previous. 5. Small LEFT foraminal protrusion L3-L4 contacts the exiting LEFT L3 nerve root with mild LEFT foraminal narrowing. 6. Mild RIGHT L4-L5 and LEFT L5-S1 foraminal narrowing. Thoracic Spine MRI 09/03/22 15:07 IMPRESSION: 1. Mild thoracic curve. Mild thoracic kyphosis. No acute compression fractures. 2. No high-grade central canal stenosis. 3. Cord signal is normal. 4. No acute thoracic spine findings. Chest X-Ray 09/03/22 16:08 IMPRESSION: Redemonstrated left 6th through 8th rib fractures again noted. No acute findings. Laboratory Results WBC 9.6 10^3/uL (4.0-10.0) 09/03/22 13:45 RBC 5.61 10^6/uL (4.1-5.3) H 09/03/22 13:45 Hgb 15.6 g/dL (11.7-16.6) 09/03/22 13:45 Hct 49.8 % (42.0-52.0) 09/03/22 13:45 MCV 88.8 fl (80-94) 09/03/22 13:45 MCH 27.8 pg (28.0-34.0) L 09/03/22 13:45 MCHC 31.3 g/dL (30.0-36.0) 09/03/22 13:45 RDW 13.3 % (12.1-15.1) 09/03/22 13:45 Plt Count 332 10^3/cmm (130-400) 09/03/22 13:45 MPV 9.9 fL (7.4-10.4) 09/03/22 13:45 Neut % (Auto) 76.6 % 09/03/22 13:45 Lymph % (Auto) 8.6 % 09/03/22 13:45 Alpine % (Auto) 12.5 % 09/03/22 13:45 Eos % (Auto) 0.7 % 09/03/22 13:45 Baso % (Auto) 0.4 % 09/03/22 13:45 Neut # (Auto) 7.32 10^3/uL (1.8-7.7) 09/03/22 13:45 Lymph # (Auto) 0.8 10^3/uL (0.8-4.8) 09/03/22 13:45 Alpine # (Auto) 1.2 10^3/uL (0.2-0.9) H 09/03/22 13:45 Eos # (Auto) 0.1 10^3/uL (0.0-0.8) 09/03/22 13:45 Baso # (Auto) 0.0 10^3/uL (0.0-0.1) 09/03/22 13:45 Nucleated RBC % (auto) 0.2 % 09/03/22 13:45 Nucleated RBCs # 0.0 /100WBC 09/03/22 13:45 Sodium 131 mmol/L (136-145) L 09/03/22 13:45 Potassium 5.4 mmol/L (3.5-5.1) H 09/03/22 13:45 Chloride 93 mmol/L (98-107) L 09/03/22 13:45 Carbon Dioxide 26 mmol/L (22-29) 09/03/22 13:45 Anion Gap 17.4 (5-19) 09/03/22 13:45 BUN 30 mg/dL (8-23) H 09/03/22 13:45 Creatinine 1.2 mg/dL (0.7-1.2) 09/03/22 13:45 GFR Calculation Not Reportable 09/03/22 13:45 Glucose 262 mg/dL (65-115) H 09/03/22 13:45 Calculated Osmolality 287 mOsm/kg (285-295) 09/03/22 13:45 Lactate 2.4 mmol/L (0.5-2.2) H 09/03/22 13:45 Calcium 10.0 mg/dL (8.5-10.5) 09/03/22 13:45 Magnesium 1.8 mg/dL (1.7-2.3) 09/03/22 13:45 Total Bilirubin 0.4 mg/dL (0.15-1.2) 09/03/22 13:45 AST 13 U/L (0-40) 09/03/22 13:45 ALT 21 U/L (0-41) 09/03/22 13:45 Alkaline Phosphatase 95 U/L (40-130) 09/03/22 13:45 Total Protein 8.0 g/dL (6.6-8.7) 09/03/22 13:45 Albumin 4.1 g/dL (3.5-5.2) 09/03/22 13:45 Globulin 3.9 g/dL (1.3-4.6) 09/03/22 13:45 Urine Color Yellow (Yellow) 09/03/22 17:05 Urine Appearance Clear (CLEAR) 09/03/22 17:05 Urine pH 6 (5-7) 09/03/22 17:05 Ur Specific Forgan 1.010 (1.005-1.030) 09/03/22 17:05 Urine Protein Neg (Negative) 09/03/22 17:05 Urine Glucose (UA) 4+ (Normal) H 09/03/22 17:05 Urine Ketones 1+ (Negative) H 09/03/22 17:05 Urine Blood Neg (Negative) 09/03/22 17:05 Urine Nitrate Negative (Negative) 09/03/22 17:05 Urine Bilirubin Neg (Negative) 09/03/22 17:05 Urine Urobilinogen Norm mg/dL (Negative) 09/03/22 17:05 Ur Leukocyte Esterase Negative (Negative) 09/03/22 17:05 Discharge Plan Discharge Patient Disposition: Home Clinical Impression: Acute urinary retention, Fracture, ribs, Dehydration, Acute hyperkalemia, Lumb ar stenosis with neurogenic claudication Condition: Stable Prescriptions: New tramadol 50 mg tablet 50 mg PO Q6H PRN (Reason: pain) Qty: 20 0RF Flomax 0.4 mg capsule 0.4 mg PO DAILY Qty: 30 0RF No Action Victoza 3-Kiko 0.6 mg/0.1 mL (18 mg/3 mL) pen injector See Rx Instructions SUBCUT DAILY Qty: 27 3RF Rx Instructions: 0.6 mg daily for 1 week, then 1.2 mg daily for 1 week, then 1.8 mg daily and continue. SUBCUT daily; lovastatin 40 mg tablet 40 mg PO QPM lisinopril 20 mg tablet 20 mg PO QAM methocarbamol 750 mg tablet 750 mg PO Q6H PRN (Reason: Muscle Spasm) Jardiance 25 mg tablet 25 mg PO QAM metoclopramide HCl [Reglan] 10 mg tablet 10 mg PO Q6H PRN (Reason: headache) Qty: 20 0RF Tylenol 325 mg Tablet 650 mg PO QID PRN (Reason: Pain) sertraline 100 mg tablet 200 mg PO BEDTIME docusate sodium 50 mg Capsule 50 mg PO DAILY omeprazole 40 mg capsule,delayed release(DR/EC) 40 mg PO DAILY tramadol 50 mg tablet 50 mg PO TID Miralax 17 gram/dose Powder 4 g PO DAILY PRN (Reason: Constipation) lidocaine 4 % Gel 1 applic TOPICAL TID PRN (Reason: Pain) aspirin 81 mg Capsule 81 mg PO DAILY Discharge Orders: Discharge ED (Routine); Ordered 09/03/22 Ordered By: Marie Amato Referrals: Ac Bah DO [Primary Care Provider] - Discharge Diet: Advance as tolerated Discharge Activity: Increase activity as tolerated Patient Instructions: Enlarged Prostate (BPH) (ED), Acute Urinary Retention in Women (ED), Opioid Safety, Pain Management Activity Restrictions/Additional Instructions: Take the Flomax daily. He can take her tramadol every 4-6 hours as needed for pain. Return if you have increased pain or weakness. Follow-up in 2 to 3 days with your primary care doctor to have your Hopkins catheter removed Coding Level of Care Code ED Organic Preparation Analyst for Chg Fwd Exam Detailed
--- NOTE | 2022-09-03 15:07 | MR_ITS ---
WS: [email or web address] MRI THORACIC SPINE WITHOUT CONTRAST TECHNIQUE: Sagittal T1, T2 and STIR imaging. Axial T2 imaging. Noncontrast imaging obtained. CLINICAL INFORMATION: urine incontinence leg weakness COMPARISON: None. FINDINGS: Mild thoracic curve. Moderate thoracic kyphosis. No acute compression fractures. No high-grade centra l canal stenosis. Cord signal is normal. Mild spondylitic changes thoracic spine. No significant disc extrusions or protrusions. Mild facet arthropathy lower thoracic spine. Tiny RIGHT pericentral protr usion T9-T10. Tiny shallow disc protrusions in the cervical spine at C3-C4 C4-C5 and C5-C6. Mild cent ral canal stenosis at C5-C6. Normal caliber thoracic aorta. Adrenal glands are normal. Small bilateral renal cysts. Normal paraver tebral soft tissues. MR/MR thoracic spin wo con* [id number] IMPRESSION: 1. Mild thoracic curve. Mild thoracic kyphosis. No acute compression fractures . 2. No high-grade central canal stenosis. 3. Cord signal is normal. 4. No acute thoracic spine findings.
--- NOTE | 2022-09-03 15:07 | MR_ITS ---
WS: [email or web address] MRI LUMBAR SPINE NONCONTRAST TECHNIQUE: Sagittal T1, T2 and STIR imaging. Axial T1 and T2 imaging. CLINICAL INFORMATION: urine incontinence leg weakness COMPARISON: MRI November 14, 2019 FINDINGS: Counting performed from the craniocervical junction. S1 is partially lumbarized. Mild lumbar curve. No acute compression. No high-grade central canal stenosis. Incidental Tarlov cyst s in the sacrum. L1-L2: Normal. L2-L3: Mild annular bulging with slight effacement of ventral thecal sac. Mild central canal stenosis . Mild narrowing of subarticular recess bilaterally. Moderate facet arthropathy. L3-L4: Mild annular bulging. Mild central canal stenosis. Slight impingement traversing L4 nerve root s bilaterally. Moderate facet arthropathy. Small LEFT foraminal protrusion with mild LEFT foraminal n arrowing. L4-L5: Mild annular bulging with slight narrowing of the subarticular recess bilaterally. Moderate fa cet arthropathy. Mild RIGHT foraminal narrowing with a small RIGHT foraminal protrusion. L5-S1: Mild disc bulging with impingement on the LEFT subarticular recess and traversing LEFT S1 nerv e root. Mild facet arthropathy. Mild LEFT foraminal narrowing. RIGHT foramen is patent. Partially visualized bilateral renal cysts. Visualized pelvic bony structures: Normal. Paravertebral soft tissues: Normal. MR/MR lumbar spine wo con* [id number] IMPRESSION: 1. Mild lumbar curve. No acute compression. No high-grade central canal stenos is. 2. Mild central canal stenosis L2-L3 and L3-L4 unchanged from previous. Imping ement on the RIGHT subarticular recess L3-L4. 3. Mild annular bulging L4-L5 with slight contact of the traversing L5 nerve r oots bilaterally. 4. Disc bulge L5-S1 slightly impinges the LEFT S1 nerve root in the subarticul ar recess. This is unchanged from previous. 5. Small LEFT foraminal protrusion L3-L4 contacts the exiting LEFT L3 nerve ro ot with mild LEFT foraminal narrowing. 6. Mild RIGHT L4-L5 and LEFT L5-S1 foraminal narrowing.
--- NOTE | 2022-09-03 15:09 | ECG_ITS ---
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 Measurements Intervals Farrell Rate: 107 P: 42 OR: 201 QRS: 178 QRSD: 95 T: 23 QT: 318 QTc: 425 Interpretive Statements SINUS TACHYCARDIA POSSIBLE RIGHT VENTRICULAR HYPERTROPHY PROBABLE INFERIOR MYOCARDIAL INFARCTION , OF INDETERMINATE AGE [35 ms Q WAVE IN II/aVF] ANTEROSEPTAL MYOCARDIAL INFARCTION , OF INDETERMINATE AGE [40+ ms Q WAVE IN V1-V4] Compared to ECG 08/27/2022 12:18:27 Sinus rhythm no longer present First degree AV block no longer present Myocardial infarct finding still present Electronically Signed On 09-03-2022 16:50:04 AQUARIUM SPECIALIST by Nilda Matson M.D. [id number]
[2022-09-03 15:27] LABS: Magnesium 1.8 mg/dL (1.7-2.3)
[2022-09-03 15:30] LABS: Lactate (Lactic Acid level) 2.4 mmol/L (0.5-2.2)
--- NOTE | 2022-09-03 16:08 | XRR_ITS ---
PROCEDURE INFORMATION: Exam: XR Chest Exam date and time: 09/03/2022 4:22 PM Age: 71 years old Clinical indication: Angina and other: Abd pain; Additional info: Rib fractures TECHNIQUE: Imaging protocol: Radiologic exam of the chest. Views: 1 view. COMPARISON: CT chest con [id number] 08/27/2022 12:51 PM FINDINGS: Lungs: Unremarkable. No consolidation. Pleural spaces: Unremarkable. No pleural effusion. No pneumothorax. Heart/Mediastinum: Unremarkable. No cardiomegaly. Bones/joints: Redemonstrated left 6th through 8th rib fractures. The rest of the osseous structures are intact. XR/XR chest 1V portable [id number] IMPRESSION: Redemonstrated left 6th through 8th rib fractures again noted. No acute findings.
[2022-09-03 17:11] VITALS: BP 109/56; PULSE 103; RESP 16; O2SAT 95
[2022-09-03] MEDS: sodium chloride 0.9% 1,000 ML 999 ML IV (17:13)
[2022-09-03 17:19] LABS: Add Urine Microscopic? NO; Charge for UA Resulting for Rev
[2022-09-03 17:38] LABS: Bilirubin Urine Neg (Negative); Blood Urine Neg (Negative); Glucose Urine UA 4+ (Normal); Ketones Urine 1+ (Negative); Leukocyte Esterase Urine Negative (Negative); Nitrate Urine Negative (Negative); Protein Urine Neg (Negative); Urine Appearance Clear (CLEAR); Urine Color Yellow (Yellow); Urobilinogen Urine Norm (Negative); pH Urine 6 (5-7)
[2022-09-03] MEDS: TRAMadol 50 mg Tablet 100 MG PO (18:03)
[2022-09-03 19:30] VITALS: BP 107/78; PULSE 99; RESP 18; O2SAT 97
== END 2022-09-03 19:31 | disposition home or self-care (01) ==
PROVIDERS: Family Medicine; Emergency Provider Emergency Medicine; PCP Electrodiagnostic Medicine
DX: R33.9 Retention of urine, unspecified (principal); E86.0 Dehydration; E87.5 Hyperkalemia; M48.062 Spinal stenosis, lumbar region with neurogenic claudication; S22.42XA Multiple fractures of ribs, left side, initial encounter for closed fracture; W19.XXXA Unspecified fall, initial encounter; E11.9 Type 2 diabetes mellitus without complications; Z87.891 Personal history of nicotine dependence; Z79.82 Long term (current) use of aspirin
CPT/HCPCS: 36415; 51702; 71045; 72146; 72148; 80053; 81003; 83605; 83735; 85025; 87040; 93005; 99285; J7030

== ENCOUNTER 2022-09-06 13:27 | Emergency (ER) | payer MEDICARE, OTHER, SELFPAY ==
[2022-09-06 13:44] VITALS: BP 123/65; PULSE 76; RESP 16; TEMP 37.1; O2SAT 96
--- NOTE | 2022-09-06 13:52 | ED_ITS ---
HPI - Male Genitourinary General: Chief complaint: Urogenital-Male Stated complaint: Need Catheter out Time Seen by Provider: 09/06/22 13:31 Source: patient Mode of arrival: ambulatory Limitations: no limitations History of Present Illness: 71-year-old male has a history urinary retention he had a Hopkins placed recently states has been causing some discomfort states mainly 90s been having difficulty sleeping at night due to the discomfort of the Hopkins. States been draining well has no other complaints denies any fever Associated symptoms: Deny dysuria, nausea or vomiting Review of Systems Const: Denies: fever(s), chills, body aches or change in appetite Eyes: Denies: blurry vision or eye discomfort ENMT: Denies: throat pain or dental pain Card: Denies: chest pain Resp: Denies: dyspnea GI: Denies: abdominal pain, nausea, vomiting or diarrhea : Denies: dysuria Musc: Denies: neck pain or back pain Skin/Breast: Denies: rash Neuro: Denies: headache(s) Psych: Denies: depression Gurjit/Lymph: Denies: easy bruising All/Imm: Denies: urticaria PFSH ED PFSH: Medical History Diabetes type 2, uncontrolled Intervertebral disc disorder with radiculopathy of lumbosacral region Lumbar disc disease Lumbar stenosis with neurogenic claudication Polyneuropathy, peripheral sensorimotor axonal Surgical History History of hernia surgery (2017) Dr. Looney History of lumbar surgery (1969) Herniated disc repair. [facility] Family History Sister Diabetes Mother Diabetes Social History Smoking and tobacco status: former smoker Alcohol intake: never Household members: spouse Marital status: Current occupational status: retired History of recent travel: No Physical Exam Const: COMMON NORMALS: no acute distress and patient oriented x3 HENMT: COMMON NORMALS: normocephalic and atraumatic HEAD & SCALP: normocephalic and atraumatic Eye: COMMON NORMALS: conjunctivae normal CONJUNCTIVA: Yes conjunctivae normal Neck/C-Spine: COMMON NORMALS: full ROM Chest: COMMONS NORMALS: normal inspection of the chest Resp: COMMON NORMALS: normal respiratory effort Cardio: COMMON NORMALS: regular rate RATE: regular rate GI: INSPECTION: Yes normal to inspection : OTHER: Hopkins is in place draining well no irritation at the penis Extremity: COMMON NORMALS: normal to inspection Neuro: COMMON NORMALS: patient oriented x3 Psych: COMMON NORMALS: mental status grossly normal Skin: COMMON NORMALS: no rashes or lesions noted GENERAL SKIN EXAM: no rashes or lesions noted Course Vital Signs: Vital signs: Vital Signs Temperature 98.7 F 09/06/22 13:44 Pulse Rate 76 09/06/22 13:44 Respiratory Rate 16 09/06/22 13:44 Blood Pressure 123/65 09/06/22 13:44 Pulse Oximetry 96 09/06/22 13:44 MDM - Male Medical Decision Making Patient presents here with discomfort with his Hopkins is well-appearing is draining well we will place him on pain meds he is to follow-up with his urologist return if worsening. Discharge Plan Discharge Patient Disposition: Home Clinical Impression: Hopkins catheter problem Condition: Stable Prescriptions: New hydrocodone-acetaminophen 5-325 mg tablet 1 tab PO Q6H PRN (Reason: pain) Qty: 14 0RF No Action Victoza 3-Kiko 0.6 mg/0.1 mL (18 mg/3 mL) pen injector See Rx Instructions SUBCUT DAILY Qty: 27 3RF Rx Instructions: 0.6 mg daily for 1 week, then 1.2 mg daily for 1 week, then 1.8 mg daily and continue. SUBCUT daily; lovastatin 40 mg tablet 40 mg PO QPM lisinopril 20 mg tablet 20 mg PO QAM methocarbamol 750 mg tablet 750 mg PO Q6H PRN (Reason: Muscle Spasm) Jardiance 25 mg tablet 25 mg PO QAM metoclopramide HCl [Reglan] 10 mg tablet 10 mg PO Q6H PRN (Reason: headache) Qty: 20 0RF Tylenol 325 mg Tablet 650 mg PO QID PRN (Reason: Pain) sertraline 100 mg tablet 200 mg PO BEDTIME docusate sodium 50 mg Capsule 50 mg PO DAILY omeprazole 40 mg capsule,delayed release(DR/EC) 40 mg PO DAILY tramadol 50 mg tablet 50 mg PO TID Miralax 17 gram/dose Powder 4 g PO DAILY PRN (Reason: Constipation) lidocaine 4 % Gel 1 applic TOPICAL TID PRN (Reason: Pain) aspirin 81 mg Capsule 81 mg PO DAILY tramadol 50 mg tablet 50 mg PO Q6H PRN (Reason: pain) Qty: 20 0RF Flomax 0.4 mg capsule 0.4 mg PO DAILY Qty: 30 0RF Discharge Orders: Discharge ED (Routine); Ordered 09/06/22 Ordered By: Kassy Schaefer Referrals: Syed Gar MD [Physician] - 1-3 days Ac Bah DO [Primary Care Provider] - Discharge Diet: Advance as tolerated Discharge Activity: Resume usual activity Patient Instructions: Hopkins Catheter Placement and Care (ED) Coding Level of Care Code ED Cigarette Tester for Daniel Lemus
== END 2022-09-06 14:07 | disposition home or self-care (01) ==
PROVIDERS: Emergency Provider Emergency Medicine; PCP Electrodiagnostic Medicine
DX: T83.9XXA Unspecified complication of genitourinary prosthetic device, implant and graft, initial encounter (principal); Z79.82 Long term (current) use of aspirin; E11.9 Type 2 diabetes mellitus without complications; Z87.891 Personal history of nicotine dependence; Y73.8 Miscellaneous gastroenterology and urology devices associated with adverse incidents, not elsewhere classified
CPT/HCPCS: 99283

== ENCOUNTER → 2022-09-17 11:48 | Outpatient (BNVA) | payer MEDICARE, SELFPAY | PROVIDERS: PCP Electrodiagnostic Medicine; Visit Provider Urology | DX: N40.1 Benign prostatic hyperplasia with lower urinary tract symptoms (principal); R33.8 Other retention of urine; N30.80 Other cystitis without hematuria; R82.81 Pyuria | CPT/HCPCS: 52000; 99203 ==

== ENCOUNTER → 2023-01-21 14:35 | Outpatient (BNVA) | payer MEDICARE, SELFPAY | PROVIDERS: PCP Electrodiagnostic Medicine; Visit Provider Internal Medicine | DX: E11.42 Type 2 diabetes mellitus with diabetic polyneuropathy (principal); E11.65 Type 2 diabetes mellitus with hyperglycemia; E78.2 Mixed hyperlipidemia; E78.5 Hyperlipidemia, unspecified; Z79.84 Long term (current) use of oral hypoglycemic drugs | CPT/HCPCS: 99214 ==

== ENCOUNTER → 2023-04-29 10:34 | Outpatient (BNVA) | payer MEDICARE, SELFPAY | PROVIDERS: PCP Electrodiagnostic Medicine; Visit Provider Internal Medicine | DX: E11.42 Type 2 diabetes mellitus with diabetic polyneuropathy; E11.65 Type 2 diabetes mellitus with hyperglycemia; E78.5 Hyperlipidemia, unspecified; E78.2 Mixed hyperlipidemia; Z79.84 Long term (current) use of oral hypoglycemic drugs | CPT/HCPCS: 99214 ==

== ENCOUNTER 2023-11-02 15:10 | Inpatient (IN) | payer MEDICARE, SELFPAY ==
[2023-11-02] VITALS (31 sets, daily range): BP systolic 96–164; BP diastolic 58–110; PULSE 83–104; RESP 14–28; TEMP 36.3–37.2; O2SAT 91–97; BMI 25.0; BMI 23.2
--- NOTE | 2023-11-02 15:27 | ECG_ITS ---
[facility] Test Date: 2023-11-02 Pat Name: Gerald Chester Department: Room: Gender: Male Public Accountant: : 1950 Requested By: Nic Medina Order Number: [id number] Erica MD: Bang Suh M.D. Measurements Intervals [place] Rate: 96 P: 58 [place]: 240 QRS: 268 QRSD: 100 T: 54 QT: 345 QTc: 438 Interpretive Statements SINUS RHYTHM WITH FIRST DEGREE AV BLOCK POSSIBLE LEFT ATRIAL ENLARGEMENT [-0.1mV P-WAVE IN V1/V2] POSSIBLE RIGHT VENTRICULAR HYPERTROPHY [SOME/ALL OF: PROMINENT R IN V1, LATE TRANSITION, RAD, GWEN, SSS] SEPTAL MYOCARDIAL INFARCTION , PROBABLY OLD [40+ ms Q WAVE IN V1/V2] Compared to ECG 09/03/2022 15:09:40 First degree AV block now present Sinus tachycardia no longer present Myocardial infarct finding still present Electronically Signed On 11-03-2023 0:38:29 CLINICAL LEADER by Bang Suh M.D. [id number]
[2023-11-02 15:30] LABS: Glucose Point of Care > 600 mg/dL (70-110)
[2023-11-02 15:33] LABS: Basophils % 0.6 %; Eosinophils # 0.1 10^3/uL (0.0-0.8); Eosinophils % 1.3 %; Hematocrit 49.1 % (37-53); Lymphocytes # 1.5 10^3/uL (0.8-4.8); Lymphocytes % 21.8 %; Mean Corpuscular HGB Conc 33.2 g/dL (30-55); Mean Corpuscular Hemoglobin 27.7 pg (27-33); Mean Corpuscular Volume 83.5 fl (82-101); Mean Platelet Volume 10.5 fL (7.4-10.4); Monocytes # 0.6 10^3/uL (0.2-0.9); Monocytes % 8.5 %; Neutrophils # 4.67 10^3/uL (1.8-7.7); Neutrophils % 67.2 %; Nucleated Red Blood Cells % 0 %; Platelet Count 250 10^3/cmm (157-399); Red Blood Count 5.88 10^6/uL (3.85-5.65); Red Cell Distribution Width 12.4 % (12.1-15.1); White Blood Count 6.94 10^3/uL (3.29-11.43)
[2023-11-02] MEDS: sodium chloride 0.9% 1,000 ML 999 ML IV ×2 (15:35→16:22)
[2023-11-02 15:44] LABS: ABG PCO2 30.5 mmHg (35-45); ABG PH Result 7.41 (7.35-7.45); Alveolar-Arterial Oxygen Gradi 2.1 mmHg (5-10); Arterial Blood Gas Hematocrit 50.2 % (42-52); Base Excess ABG -3.8 mmol/L (-2.0-2.0); Blood Gas Operator Identificat AMH; Blood Gas Sample Site Brachial, right; Blood Gas Sample Type Arterial; Carboxyhemoglobin 1.1 %THgb (0.4-20.1); HCO3 ABG 19.5 mmol/L (22-26); HGB O2 Sat 96.3 % (95-100); Ionized Calcium Level - ABG 1.2 mmol/L (1.1-1.4); Methemoglobin 0.7 % (0.4-1.5); Oxygen Device ROOM AIR; Oxygen Saturation ABG 98.1; PO2 ABG 91.9 mmHg (80.0-100.0); PO2 FiO2 Ratio Arterial Blood 0; Potassium Level - ABG 4.8 mmol/L (3.5-5.0); Total Hemoglobin 16.4 g/dL (14-18)
[2023-11-02 15:50] LABS: Alanine Aminotransferase 17 U/L (0-41); Albumin Level 3.8 g/dL (3.5-5.2); Alkaline Phosphatase 103 U/L (40-130); Anion Gap 21.2 (5-19); Aspartate Amino Transferase 12 U/L (0-40); Blood Urea Nitrogen 38 mg/dL (8-23); Calcium 9.2 mg/dL (8.5-10.5); Carbon Dioxide 21 mmol/L (22-29); Chloride 83 mmol/L (98-107); Creatinine Clr Calc Pharmacy 73.5877; Globulin 3.6 g/dL (1.3-4.6); Potassium 5.2 mmol/L (3.5-5.1); Sodium 120 mmol/L (136-145); Total Bilirubin 0.3 mg/dL (0.15-1.2); Total Protein 7.4 g/dL (6.6-8.7)
[2023-11-02 15:53] LABS: Ketone (Acetest) Serum Negative (Negative)
[2023-11-02 15:58] LABS: Osmolality Calculated 306 mOsm/kg (285-295)
[2023-11-02 15:59] LABS: Glucose 946 mg/dL (65-115)
--- NOTE | 2023-11-02 16:05 | ED_ITS ---
HPI - Recheck/Abnormal Lab/Rx 2 General: Chief Complaint: Recheck/Abnormal Lab/Rx Stated Complaint: abn labs / sent by Dr Del Toro Time Seen by Provider: 11/02/23 15:27 Source: patient Mode of arrival: ambulatory History of Present Illness: 72-year-old male with history of diabete s mellitus is currently on insulin as well as glipizide several other medications. Last few weeks he has had polydipsia and polyuria. He has been very nauseous. He went to see his dot compliance manager that his blood sugar was over 600 and he was referred to the emergency room. He has not previously had episodes of DKA. complaint: abnormal lab Review of Systems 2 Const: Denies: fever(s) or chills Card: Denies: chest pain Resp: Denies: dyspnea, productive cough or non-productive cough GI: Reports: nausea; Denies: abdominal pain or vomiting : Reports: urinary frequency and urinary urgency; Denies: flank pain or dysuria Musc: Denies: neck pain or back pain Skin/Breast: Denies: rash or pruritus PFSH ED 2 PFSH: Medical History BPH loc w urin obs/LUTS Acute urinary retention Diabetes type 2, uncontrolled Lumbar disc disease Polyneuropathy, peripheral sensorimotor axonal Lumbar stenosis with neurogenic claudication Intervertebral disc disorder with radiculopathy of lumbosacral region Surgical History History of hernia surgery (2017) Dr. Looney History of lumbar surgery (1969) Herniated disc repair. [facility] Family History Sister Diabetes Mother , at age 93 Diabetes Father , at age 57 Suicide Social History Smoking and tobacco/nicotine status: former use of tobacco/nicotine Alcohol intake: never Substance/Drug Use: never Household members: spouse Marital status: Current occupational status: retired Physical Exam 2 Const: COMMON NORMALS: no acute distress GENERAL APPEARANCE: cooperative and comfortable ORIENTATION/CONSCIOUSNESS: Yes awake, Yes oriented to person, Yes oriented to place and Yes oriented to time HENMT: COMMON NORMALS: normocephalic, atraumatic and hearing grossly normal bilaterally HEAD & SCALP: normocephalic and atraumatic Resp: COMMON NORMALS: normal respiratory effort, No retractions, No use of accessory muscles and clear to auscultation bilaterally AUSCULTATION: clear to auscultation bilaterally Cardio: COMMON NORMALS: regular rate, regular rhythm and No murmurs present (Cardio) RATE: regular rate RHYTHM: regular rhythm GI: COMMON NORMALS: Soft to palpation and No hepatosplenomegaly present A USCULTATION: Yes normoactive bowel sounds PALPATION: Yes Soft to palpation, No Tenderness to palpation present (GI), No Guarding due to palpation present (GI) and Yes No hepatosplenomegaly present Extremity: COMMON NORMALS: normal to inspection, capillary refill normal, no clubbing, cyanosis or edema, no calf tenderness and no pedal edema Neuro: SENSORIUM/ORIENTATION: Yes oriented to person, Yes oriented to place and Yes oriented to time Skin: COMMON NORMALS: no rashes or lesions noted GENERAL SKIN EXAM: no rashes or lesions noted Course 2 Vital Signs: Vital signs: Vital Signs Temperature 98.4 F 11/02/23 15:15 Pulse Rate 96 11/02/23 17:01 Respiratory Rate 16 11/02/23 15:15 Blood Pressure 120/82 11/02/23 17:01 Pulse Oximetry 96 11/02/23 17:01 Oxygen Delivery Me thod Room Air 11/02/23 16:30 MDM - Recheck/Abnormal Lab/Rx Medical Decision Making Hyperosmolar nonketotic state with negative ketones blood sugar approaching 1000 patient given 2 L of fluid. Insulin drip started will transfer to the ICU discussed with Dr. Dr. Perez orders written. He is hyponatremic but this corrects with his hyperglycemia Medical Records I reviewed the patient's medical records. Lab Data I reviewed the patient's lab results. 11/02/23 15:22 11/02/23 17:02 Laboratory Results WBC 6.94 10^3/uL (3.29-11.43) 11/02/23 15:22 RBC 5.88 10^6/uL (3.85-5.65) H 11/02/23 15:22 Hgb 16.30 g/dL (11.27-16.99) 11/02/23 15:22 Hct 49.1 % (37-53) 11/02/23 15: MCV 83.5 fl (82-101) 11/02/23 15: MCH 27.7 pg (27-33) 11/02/23 15: MCHC 33.2 g/dL (30-55) 11/02/23 15: RDW 12.4 % (12.1-15.1) 11/02/23 15: Plt Count 250 10^3/cmm (157-399) 11/02/23 15: MPV 10.5 fL (7.4-10.4) H 11/02/23 15: Neut % (Auto) 67.2 % 11/02/23 15: Lymph % (Auto) 21.8 % 11/02/23 15: [place] % (Auto) 8.5 % 11/02/23 15: Eos % (Auto) 1.3 % 11/02/23 15: Baso % (Auto) 0.6 % 11/02/23 15: Neut # (Auto) 4.67 10^3/uL (1.8-7.7) 11/02/23 15: Lymph # (Auto) 1.5 10^3/uL (0.8-4.8) 11/02/23: [place] # (Auto) 0.6 10^3/uL (0.2-0.9) 11/02/23 15: Eos # (Auto) 0.1 10^3/uL (0.0-0.8) 11/02/23: Baso # (Auto) 0.0 10^3/uL (0.0-0.1) 11/02/23: Nucleated RBC % (auto) 0 % 11/02/23: Nucleated RBCs # 0.0 /100WBC 11/02/23 15: Specimen Type Arterial 11/02/23 15:33 Sample Site Brachial, right 11/02/23 15:33 ABG pH 7.41 (7.35-7.45) 11/02/23 15:33 ABG pCO2 30.5 mmHg (35-45) L 11/02/23 15:33 ABG pO2 91.9 mmHg (80.0-100.0) 11/02/23 15:33 ABG PO2/FiO2 Ratio 0 11/02/23 15:33 ABG HCO3 19.5 mmol/L (22-26) L 11/02/23 15:33 ABG O2 Saturation 98.1 11/02/23 15:33 ABG Base Excess -3.8 mmol/L (-2.0-2.0) L 11/02/23 15:33 Roderick Test N/a 11/02/23 15:33 A-a O2 Gradient 2.1 mmHg (5-10) L 11/02/23 15:33 Hematocrit 50.2 % (42-52) 11/02/23 15:33 Hgb O2 Saturation 96.3 % (95-100) 11/02/23 15:33 Carboxyhemoglobin 1.1 %THgb (0.4-20.1) 11/02/23 15:33 Methemoglobin 0.7 % (0.4-1.5) 11/02/23 15:33 Total Hemoglobin 16.4 g/dL (14-18) 11/02/23 15:33 Sodium 123.0 mmol/L (131-143) L 11/02/23 15:33 Potassium 4.8 mmol/L (3.5-5.0) 11/02/23 15:33 Glucose 906.0 mg/dL (70-115) H 11/02/23 15:33 Ionized Calcium 1.2 mmol/L (1.1-1.4) 11/02/23 15:33 O2 Delivery Device Room air 11/02/23 15:33 FiO2 21.0 % 11/02/23 15:33 Strike Off Machine Operator ID Amh 11/02/23 15:33 Sodium 120 mmol/L (136-145) L 11/02/23 15:22 Potassium 5.2 mmol/L (3.5-5.1) H 11/02/23 15:22 Chloride 83 mmol/L (98-107) L 11/02/23 15:22 Carbon Dioxide 21 mmol/L (22-29) L 11/02/23 15:22 Anion Gap 21.2 (5-19) H 11/02/23 15:22 BUN 38 mg/dL (8-23) H 11/02/23 15:22 Creatinine 1.1 mg/dL (0.7-1.2) 11/02/23 15:22 GFR Calculation Not Reportable 11/02/23 15:22 Glucose 946 mg/dL (65-115) H* 11/02/23 15:22 POC Glucose > 600 mg/dL (70-110) H* 11/02/23 15:26 Calculated Osmolality 306 mOsm/kg (285-295) H 11/02/23 15:22 Lactic Acid 5.3 mmol/L (0.5-2.2) H* 11/02/23 15:22 Calcium 9.2 mg/dL (8.5-10.5) 11/02/23 15:22 Magnesium 1.9 mg/dL (1.7-2.3) 11/02/23 15:22 Total Bilirubin 0.3 mg/dL (0.15-1.2) 11/02/23 15:22 AST 12 U/L (0-40) 11/02/23 15:22 ALT 17 U/L (0-41) 11/02/23 15:22 Alkaline Phosphatase 103 U/L (40-130) 11/02/23 15:22 Troponin T Baseline 16 ng/L (0-15) H 11/02/23 15:22 Total Protein 7.4 g/dL (6.6-8.7) 11/02/23 15:22 Albumin 3.8 g/dL (3.5-5.2) 11/02/23 15:22 Globulin 3.6 g/dL (1.3-4.6) 11/02/23 15:22 Urine Color Yellow (Yellow) 11/02/23 16:14 Urine Appearance Clear (CLEAR) 11/02/23 16:14 Urine pH 5 (5-7) 11/02/23 16:14 Ur Specific [place] 1.005 (1.005-1.030) 11/02/23 16:14 Urine Protein Neg (Negative) 11/02/23 16:14 Urine Glucose (UA) 4+ (Normal) H 11/02/23 16:14 Urine Ketones Negative (Negative) 11/02/23 16:14 Urine Blood Neg (Negative) 11/02/23 16:14 Urine Nitrate Negative (Negative) 11/02/23 16:14 Urine Bilirubin Neg (Negative) 11/02/23 16:14 Urine Urobilinogen Norm mg/dL (Negative) 11/02/23 16:14 Ur Leukocyte Esterase Negative (Negative) 11/02/23 16:14 Serum Ketones Negative (Negative) 11/02/23 15:22 All radiology interpretation(s) finalized by discharge Discharge Plan Discharge Patient Disposition: Admitted As Inpatient Admit Provider: Myron Perez Clinical Impression: Hyperosmolar hyperglycemic state (HHS), Diabetes type 2, uncontrolled Condition: Stable Coding Level of Care Code ED Fruit I Farmworker for Daniel Lemus
[2023-11-02 16:20] LABS: Magnesium 1.9 mg/dL (1.7-2.3)
[2023-11-02 16:28] LABS: Add Urine Microscopic? NO; Charge for UA Resulting for Rev
--- NOTE | 2023-11-02 16:30 | PC.PHAR ---
pt first stated he just ran out of his medications-called angelita Armstrong and [facility] to find out last fill dates -went back to pts room to verify why medications hadnt been filled recently-pt states hes sorry he lied to me but he hasnt taken meds in months pt states he is taking no medications and hasnt for months- flomax 0.4mg daily filled 12/29/22 90d/s jardiance 25mg qam filled 07/15/23 30d/s lisinopril 20mg qam filled 12/29/22 90d/s lovastatin 40mg qpm filled 90d/s 2 refills omeprazole 40mg daily filled 06/24/23 90d/s 2 refills zoloft 100mg take 200mg hs filled 05/08/23 90d/s jaon and angelita Mosquera states not filled Victoza for the pt rx written 02/18/23-pt states been out for months
[2023-11-02 16:34] LABS: Bilirubin Urine Neg (Negative); Blood Urine Neg (Negative); Glucose Urine UA 4+ (Normal); Ketones Urine Negative (Negative); Leukocyte Esterase Urine Negative (Negative); Nitrate Urine Negative (Negative); Protein Urine Neg (Negative); Specific Gravity, Urine 1.005 (1.005-1.030); Urine Appearance Clear (CLEAR); Urine Color Yellow (Yellow); Urobilinogen Urine Norm (Negative); pH Urine 5 (5-7)
--- NOTE | 2023-11-02 16:39 | PC.NURSE ---
PER VERBAL ORDERS FROM DR. ELIZALDE, OBTAIN FINGERSTICK GLUCOSE AND TITRATE ACCORDINGLY FOR ACCUCHECK MACHINE TO READ BELOW HIGH.
--- NOTE | 2023-11-02 16:41 | P.HP_ITS ---
Providers/Chief Complaint 2 Primary Care Provider: Ac Bah DO Chief Complaint: abn labs / sent by Dr Del Toro History of Present Illness Gerald Chester is a 72 year old male who is a Jehovah witness, does not accept blood products, with a past medical history of kgy-[id number]-[id number] type 2 diabetes mellitus, noncompliant with medications, who presented to endocrinology office, with elevated blood sugars and directed to come to the ER. Patient complains of polyuria, polydipsia, polyphagia, feeling unwell, no chest pain, no palpitations no shortness of breath no abdominal pain no diarrhea, does report dysuria, does report severe peripheral neuropathy, no diabetic ulcers, no recent history of infections, Review of Systems 2 Const: Denies: fever(s) Eyes: Denies: change in vision Card: Denies: chest pain Resp: Denies: dyspnea GI: Denies: abdominal pain : Reports: urinary frequency; Denies: flank pain or difficulty urinating Neuro: Reports: numbness in extremities; Denies: headache(s) or weakness in extremities Medications/Allergies Home Medications Medication Instructions Recorded Confirmed Last Taken Type No Known Home Medications 11/02/23 11/02/23 Unknown History Allergies Allergy/AdvReac Type Severity Reaction Status Date / Time No Known Allergies Allergy Verified 11/02/23 16:06 PFSH Acute 2 PFSH: Medical History BPH loc w urin obs/LUTS Acute urinary retention Diabetes type 2, uncontrolled Lumbar disc disease Polyneuropathy, peripheral sensorimotor axonal Lumbar stenosis with neurogenic claudication Intervertebral disc disorder with radiculopathy of lumbosacral region Surgical History History of hernia surgery (2018) Dr. Looney History of lumbar surgery (1970) Herniated disc repair. [facility] in [place] Family History Sister Diabetes Mother , at age 93 Diabetes Father , at age 57 Suicide Social History Smoking and tobacco/nicotine status: former use of tobacco/nicotine Alcohol intake: never Substance/Drug Use: never Household members: spouse Marital status: Current occupational status: retired Vitals/I&O/Wt Last Vital Signs Temp 98.4 F 11/02/23 15:15 Pulse 95 11/02/23 16:30 Resp 16 11/02/23 15:15 BP 164/97 11/02/23 16:30 Pulse Ox 93 11/02/23 16:30 O2 Del Method Room Air 11/02/23 16:30 11/02/23 11/02/23 11/02/23 06:59 14:59 22:59 Intake Total 1000 / 1000 Balance 1000 / 1000 Weight last 48 hrs Weight 90.718 kg Physical Exam 2 Const: COMMON NORMALS: no acute distress and patient oriented x3 HENMT: COMMON NORMALS: normocephalic HEAD & SCALP: normocephalic Eye: COMMON NORMALS: Equal, round and reactive pupils present and EOMs intact bilaterally Neck/C-Spine: COMMON NORMALS: no JVD Resp: COMMON NORMALS: normal respiratory effort, No retractions, No use of accessory muscles and clear to auscultation bilaterally AUSCULTATION: clear to auscultation bilaterally Cardio: COMMON NORMALS: no JVD, regular rate, regular rhythm, S1 normal heart sound present and S2 normal heart sound present RATE: regular rate RHYTHM: regular rhythm HEART SOUNDS: S1 normal heart sound present and S2 normal heart sound present GI: COMMON NORMALS: Normal to inspection, nondistended, normoactive bowel sounds present, Soft to palpation, non-tender, no masses and no bruits P ALPATION: Yes Soft to palpation Extremity: COMMON NORMALS: no calf tenderness and no pedal edema OTHER: DP PT pulses palpable bilaterally, has bilateral, has onychomycosis bilateral toes Neuro: COMMON NORMALS: patient oriented x3, CN's II-XII intact bilaterally and moves all extremities Psych: COMMON NORMALS: mental status grossly normal Data 11/02/23 15:22 11/02/23 15:22 A&P Assessment and plan (1) Hyperosmolar hyperglycemic state (HHS): Plan HHS ? pH 7.41, potassium 5.2, bicarb 21 anion gap 21.2 blood sugar 946, ketones negative -Hemoglobin A1c 18.6, patient does admit that he has not been using any of his diabetic medications ? Plan ? Admit to ICU -Placed on insulin drip ? IV fluids, ? Monitor blood sugars hourly ? Monitor BMP every 4 hours ? N.p.o. sips and chips ? Monitor potassium currently 5.2 ? Once blood sugar is under 200, anion gap is 14, can transition off insulin drip to short acting and long-acting insulin ? Monitor potassium closely if drops below 4 we will have to supplement with potassium ? Monitor anion gap closely, ? Pseudohyponatremia serum sodium 120, monitor ? Serial troponins, lipase, ? Full code ? Lovenox for DVT prophylaxis ? Patient is a Jehovah witness and does not accept blood products Attestations 2 Medical Necessity Statement*: Patient requires hospitalization, inpatient, greater than 2 midnights, for [facility] Coding Level of Care Code Acute Code for Chg Fwd Diagnoses Hyperosmolar hyperglycemic state ([facility]) E11.00
[2023-11-02] MEDS: insulin regular-human 250 UNIT in sodium chloride 0.9% 250 ML 26.8500000000000014 UNIT IV (16:45)
[2023-11-02 17:19] LABS: Troponin(5th) Baseline 16 ng/L (0-15)
[2023-11-02 17:21] LABS: Lactic Sepsis W/Reflex 5.3 mmol/L (0.5-2.2)
[2023-11-02 17:23] LABS: Anion Gap 14.3 (5-19); Blood Urea Nitrogen 35 mg/dL (8-23); Calcium 8.8 mg/dL (8.5-10.5); Carbon Dioxide 25 mmol/L (22-29); Chloride 95 mmol/L (98-107); Creatinine Clr Calc Pharmacy 80.9464; Osmolality Calculated 312 mOsm/kg (285-295); Potassium 4.3 mmol/L (3.5-5.1); Sodium 130 mmol/L (136-145)
[2023-11-02 17:28] LABS: NT Pro B Type Natriuretic Pept < 36 pg/mL (0-125); Procalcitonin 0.13 ng/mL (0-0.5)
[2023-11-02 17:29] LABS: Glucose 719 mg/dL (65-115)
[2023-11-02 17:29] LABS: Glucose Point of Care 556 mg/dL (70-110)
[2023-11-02 17:40] LABS: C Reactive Protein 7.4 mg/L (0.0-4.9); Lipase 53 U/L (13-60)
[2023-11-02] MEDS: gabapentin 300 mg Capsule PO (18:17)
[2023-11-02] MEDS: pantoprazole 40 mg SDV IVP (18:17)
[2023-11-02] MEDS: sodium chloride 0.9% 1,000 ML 125 ML IV (18:18)
[2023-11-02] MEDS: enoxaparin 40 mg/0.4 mL Syringe SUBCUT (18:18)
[2023-11-02 18:25] LABS: Glucose Point of Care 312 mg/dL (70-110)
[2023-11-02 18:33] LABS: Reflex Lactate Order REFLEX LACTIC ORDERD
--- NOTE | 2023-11-02 18:39 | ECG_ITS ---
[facility] Test Date: 2023-11-02 Pat Name: Gerald Chester Department: Room: [facility] Gender: Male Lap Machine Tender: : 1950 Requested By: Myron Perez Order Number: [id number] Erica MD: Bang Suh M.D. Measurements Intervals [place] Rate: 95 P: 20 [place]: 192 QRS: -84 QRSD: 93 T: 41 QT: 348 QTc: 438 Interpretive Statements SINUS RHYTHM INFERIOR MYOCARDIAL INFARCTION , OF INDETERMINATE AGE [40+ ms Q WAVE AND/OR ST/T ABNORMALITY IN II/aVF] ANTEROSEPTAL MYOCARDIAL INFARCTION , OF INDETERMINATE AGE [40+ ms Q WAVE IN V1-V4] Compared to ECG 11/02/2023 15:32:01 First degree AV block no longer present Myocardial infarct finding still present Electronically Signed On 11-03-2023 1:04:11 SUPERVISOR CORE SHOP by Bang Suh M.D. [id number]
[2023-11-02 19:13] LABS: Glucose Point of Care 170 mg/dL (70-110)
[2023-11-02 19:17] LABS: Troponin 5 2HR 15.75 ng/L (0-15)
[2023-11-02 19:20] LABS: Troponin 5 2HR Delta -0.25 ABS# (0-10)
[2023-11-02 19:24] LABS: Lactic Acid level (Lactate) 2.6 mmol/L (0.5-2.2)
[2023-11-02 19:27] LABS: Chol HDL Ratio 4.11 mg/dL (1.0-5.00); Cholesterol 152 mg/dL (0-200); HDL Cholesterol 37 mg/dL (60-100); LDL Cholesterol Calculated 80 mg/dL (50-129); LDL HDL Ratio 2.16 RATIO (0.00-3.22); Thyroid Stimulating Hormone 1.58 uIU/mL (0.27-4.20); Triglycerides 177 mg/dL (0-150)
[2023-11-02 20:27] LABS: Glucose Point of Care 89 mg/dL (70-110)
[2023-11-02 20:35] LABS: Estmated Average Glucose 499
[2023-11-02] MEDS: acetaminophen 325 mg Tablet 650 MG PO (21:12)
[2023-11-02] MEDS: insulin glargine 100 units/1 mL 15 UNIT SUBCUT (21:15)
--- NOTE | 2023-11-02 21:15 | PC.NURSE ---
Addendum entered by yCnthia Craft RN 11/03/23 02:30: Additional order received to discontinue insulin drip two hours after administration of subq insulin. Original Note: Insulin Drip At 1910, patient's blood glucose 170, anion gap 14.3, and his carbon dioxide level on the cmp 25. Dr. Sampson notified, patient home dose of insulin known at this time, no new orders received. At 2002, patient's blood glucose 89, insulin drip titrated per protocol. Dr. Sampson contacted and orders received for 15 units lantus scheduled at bedtime starting tonight, low dose subq insulin ACHS, as well as starting a carb consistent diet. See MAR for details.
[2023-11-02 21:28] LABS: Glucose Point of Care 108 mg/dL (70-110)
[2023-11-02 22:03] LABS: Glucose Point of Care 163 mg/dL (70-110)
--- NOTE | 2023-11-02 22:15 | PC.NURSE ---
Cramping Patient complaining of muscle cramps in his legs and feet at an 8 on a numerical 1-[address] Sampson notified and order placed by physician for 5 mg cyclobenzaprine PO once. See MAR for details.
[2023-11-02] MEDS: cyclobenzaprine 10 mg Tablet 5 MG PO (22:19)
--- NOTE | 2023-11-02 22:40 | ECG_ITS ---
[facility] Test Date: 2023-11-02 Pat Name: Gerald Chester Department: Room: [facility] Gender: Male Healthcare Representative: : 1950 Requested By: Myron Perez Order Number: [id number] Erica MD: Bang Suh M.D. Measurements Intervals [place] Rate: 88 P: 44 [place]: 222 QRS: -64 QRSD: 97 T: 38 QT: 376 QTc: 456 Interpretive Statements SINUS RHYTHM WITH FIRST DEGREE AV BLOCK INFERIOR MYOCARDIAL INFARCTION , PROBABLY OLD [40+ ms Q WAVE AND/OR ST/T ABNORMALITY IN II/aVF] ANTEROSEPTAL MYOCARDIAL INFARCTION , OF INDETERMINATE AGE [40+ ms Q WAVE IN V1-V4] Compared to ECG 11/02/2023 18:39:27 First degree AV block now present Myocardial infarct finding still present Electronically Signed On 11-03-2023 1:05:20 ANNEALING FURNACE OPERATOR by Bang Suh M.D. [id number]
[2023-11-02 22:49] LABS: Troponin 5 6HR 15.15 ng/L (0-15)
[2023-11-02 23:04] LABS: Troponin 5 6HR Delta -0.85 ng/L (0-12)
[2023-11-02 23:05] LABS: Anion Gap 14.7 (5-19); Blood Urea Nitrogen 29 mg/dL (8-23); Calcium 8.4 mg/dL (8.5-10.5); Carbon Dioxide 24 mmol/L (22-29); Chloride 102 mmol/L (98-107); Creatinine Clr Calc Pharmacy 98.2434; Glucose 186 mg/dL (65-115); Osmolality Calculated 295 mOsm/kg (285-295); Potassium 3.7 mmol/L (3.5-5.1); Sodium 137 mmol/L (136-145)
[2023-11-02 23:06] LABS: Glucose Point of Care 177 mg/dL (70-110)
[2023-11-03] VITALS (40 sets, daily range): BP systolic 101–187; BP diastolic 56–125; PULSE 77–95; RESP 12–31; TEMP 36.2–37; O2SAT 91–98; BMI 23.6
[2023-11-03 01:23] LABS: Blood Urea Nitrogen 28 mg/dL (8-23); Calcium 8.5 mg/dL (8.5-10.5); Carbon Dioxide 24 mmol/L (22-29); Chloride 103 mmol/L (98-107); Creatinine Clr Calc Pharmacy 98.2434; Glucose 202 mg/dL (65-115); Osmolality Calculated 297 mOsm/kg (285-295); Sodium 138 mmol/L (136-145)
[2023-11-03] MEDS: sodium chloride 0.9% 1,000 ML 125 ML IV (02:09)
[2023-11-03 03:30] LABS: Basophils % 0.5 %; Eosinophils # 0.2 10^3/uL (0.0-0.8); Eosinophils % 1.8 %; Hematocrit 44.2 % (37-53); Lymphocytes # 2.2 10^3/uL (0.8-4.8); Lymphocytes % 24.3 %; Mean Corpuscular HGB Conc 32.4 g/dL (30-55); Mean Corpuscular Hemoglobin 27.7 pg (27-33); Mean Corpuscular Volume 85.5 fl (82-101); Mean Platelet Volume 10.2 fL (7.4-10.4); Monocytes # 0.7 10^3/uL (0.2-0.9); Monocytes % 7.8 %; Neutrophils # 5.79 10^3/uL (1.8-7.7); Neutrophils % 65.1 %; Nucleated Red Blood Cells % 0 %; Platelet Count 221 10^3/cmm (157-399); Red Blood Count 5.17 10^6/uL (3.85-5.65); Red Cell Distribution Width 12.3 % (12.1-15.1); White Blood Count 8.88 10^3/uL (3.29-11.43)
[2023-11-03 03:54] LABS: Alanine Aminotransferase 13 U/L (0-41); Albumin Level 3.1 g/dL (3.5-5.2); Alkaline Phosphatase 76 U/L (40-130); Aspartate Amino Transferase 12 U/L (0-40); Blood Urea Nitrogen 26 mg/dL (8-23); Calcium 8.1 mg/dL (8.5-10.5); Carbon Dioxide 24 mmol/L (22-29); Chloride 103 mmol/L (98-107); Creatinine Clr Calc Pharmacy 98.2434; Globulin 2.9 g/dL (1.3-4.6); Glucose 230 mg/dL (65-115); Magnesium 1.7 mg/dL (1.7-2.3); Osmolality Calculated 294 mOsm/kg (285-295); Phosphorus 2.9 mg/dL (2.5-4.5); Sodium 136 mmol/L (136-145); Total Bilirubin 0.3 mg/dL (0.15-1.2)
[2023-11-03] MEDS: acetaminophen 325 mg Tablet 650 MG PO (04:35)
[2023-11-03] MEDS: insulin lispro 100 unit/1 mL SUBCUT ×4 (08:01→21:46)
[2023-11-03] MEDS: gabapentin 300 mg Capsule PO ×2 (08:02→17:02)
[2023-11-03 08:03] LABS: Glucose Point of Care 237 mg/dL (70-110)
[2023-11-03 08:22] LABS: Anion Gap 12.3 (5-19); Blood Urea Nitrogen 22 mg/dL (8-23); Calcium 8.3 mg/dL (8.5-10.5); Carbon Dioxide 26 mmol/L (22-29); Chloride 102 mmol/L (98-107); Creatinine Clr Calc Pharmacy 98.7561; Glucose 262 mg/dL (65-115); Osmolality Calculated 294 mOsm/kg (285-295); Potassium 4.3 mmol/L (3.5-5.1); Sodium 136 mmol/L (136-145)
[2023-11-03 09:10] LABS: Lactic Sepsis W/Reflex 1.9 mmol/L (0.5-2.2)
[2023-11-03 12:00] LABS: Glucose Point of Care 197 mg/dL (70-110)
[2023-11-03] MEDS: lisinopril 20 mg Tablet PO (13:06)
--- NOTE | 2023-11-03 13:08 | P.PN_ITS ---
Subjective 2 Subjective: Patient was seen this morning, overnight his anion gap closed, blood sugars reasonable, he tells me that his big issue with insulin is affordability, has not been able to afford his insulin Vitals/I&O/Wt Last Vital Signs Temp 97.3 F L 11/03/23 09:00 Pulse 86 11/03/23 09:30 Resp 31 H 11/03/23 09:30 BP 141/89 11/03/23 09:30 Pulse Ox 96 11/03/23 09:30 O2 Del Method Room Air 11/03/23 09:00 11/02/23 11/03/23 11/03/23 22:59 06:59 14:59 Intake Total 1048.682 / 8938.690 4870.803 / 2726.485 612.5 / 612.5 Output Total 450 / 450 275 / 275 Balance 1048.682 / 6192.406 4782.803 / 2276.485 337.5 / 337.5 Weight last 48 hrs Weight 85.502 kg Weight 84.4 kg Weight 90.718 kg Physical Exam 2 Const: COMMON NORMALS: no acute distress and patient oriented x3 HENMT: COMMON NORMALS: normocephalic HEAD & SCALP: normocephalic Neck/C-Spine: COMMON NORMALS: no JVD Resp: COMMON NORMALS: normal respiratory effort, No retractions, No use of accessory muscles and clear to auscultation bilaterally AUSCULTATION: clear to auscultation bilaterally Cardio: COMMON NORMALS: no JVD, regular rate, regular rhythm, S1 normal heart sound present and S2 normal heart sound present RATE: regular rate RHYTHM: regular rhythm HEART SOUNDS: S1 normal heart sound present and S2 normal heart sound present GI: COMMON NORMALS: Normal to inspection, nondistended, normoactive bowel sounds present, Soft to palpation, non-tender, No hepatosplenomegaly present, no masses and no bruits PALPATION: Yes Soft to palpation and Yes No hepatosplenomegaly present Extremity: COMMON NORMALS: capillary refill normal, no clubbing, cyanosis or edema, no calf tenderness and no pedal edema Neuro: COMMON NORMALS: patient oriented x3 Psych: COMMON NORMALS: mental status grossly normal Data 11/03/23 03:17 11/03/23 07:54 A&P Assessment and plan (1) Hyperosmolar hyperglycemic state (HHS): Plan HHS, resolved ? pH 7.41, potassium 5.2, bicarb 21 anion gap 21.2 blood sugar 946, ketones negative -Hemoglobin A1c 18.6, patient does admit that he has not been using any of his diabetic medications due to affordability reasons, ? Anion gap closed, ? Plan ?Will moved to general medical floors, started on low-dose sliding scale, with Lantus 15 units at bedtime, diabetic education, will monitor blood sugars for the next 24 hours, -Peripheral neuropathy gabapentin 300 mg twice daily ? Full code ? Lovenox for DVT prophylaxis ? Patient is a Jehovah witness and does not accept blood products Attestations 2 Medical Necessity Statement*: Patient requires hospitalization for hyperglycemia, Diagnoses Hyperosmolar hyperglycemic state (HHS) E11.00
[2023-11-03] MEDS: enoxaparin 40 mg/0.4 mL Syringe SUBCUT (17:00)
[2023-11-03] MEDS: pantoprazole 40 mg SDV IVP (17:01)
[2023-11-03 17:13] LABS: Glucose Point of Care 256 mg/dL (70-110)
--- NOTE | 2023-11-03 17:48 | PC.NURSE ---
Shift Summary: Uneventful shift. patient rested in bed for much of the day, but was up frequently to use the bathroom. Remains alerted and oriented to person, place time, and situation. Blood pressures were running high and he was started on lisinopril, which he says he was prescribed by a primary doctor but he does not take it. Near end of shift, transferred to [facility]. report given to Heber BASHIR. 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
[2023-11-03 19:54] LABS: Glucose Point of Care 305 mg/dL (70-110)
[2023-11-03] MEDS: atorvastatin 40 mg Tablet PO (21:45)
[2023-11-03] MEDS: insulin glargine 100 units/1 mL 15 UNIT SUBCUT (21:46)
[2023-11-04] VITALS: BP 109/70; PULSE 84; RESP 18; TEMP 37; O2SAT 95
[2023-11-04 03:52] VITALS: BP 115/71; PULSE 75; RESP 18; TEMP 37; O2SAT 96
[2023-11-04] MEDS: acetaminophen 325 mg Tablet 650 MG PO (04:43)
[2023-11-04 06:00] LABS: Basophils % 0.5 %; Eosinophils # 0.2 10^3/uL (0.0-0.8); Eosinophils % 2.6 %; Lymphocytes # 1.8 10^3/uL (0.8-4.8); Mean Corpuscular HGB Conc 32.5 g/dL (30-55); Mean Corpuscular Hemoglobin 27.2 pg (27-33); Mean Corpuscular Volume 83.8 fl (82-101); Mean Platelet Volume 10.2 fL (7.4-10.4); Monocytes # 0.5 10^3/uL (0.2-0.9); Monocytes % 8.2 %; Neutrophils # 4.05 10^3/uL (1.8-7.7); Neutrophils % 61.2 %; Nucleated Red Blood Cells % 0 %; Platelet Count 217 10^3/cmm (157-399); Red Blood Count 5.25 10^6/uL (3.85-5.65); Red Cell Distribution Width 12.5 % (12.1-15.1)
[2023-11-04 06:25] LABS: Alanine Aminotransferase 12 U/L (0-41); Albumin Level 3.1 g/dL (3.5-5.2); Alkaline Phosphatase 71 U/L (40-130); Anion Gap 14.2 (5-19); Aspartate Amino Transferase 14 U/L (0-40); Blood Urea Nitrogen 18 mg/dL (8-23); Calcium 8.2 mg/dL (8.5-10.5); Carbon Dioxide 22 mmol/L (22-29); Chloride 104 mmol/L (98-107); Creatinine Clr Calc Pharmacy 98.0833; Globulin 2.9 g/dL (1.3-4.6); Glucose 195 mg/dL (65-115); Magnesium 1.7 mg/dL (1.7-2.3); Osmolality Calculated 289 mOsm/kg (285-295); Phosphorus 2.4 mg/dL (2.5-4.5); Potassium 4.2 mmol/L (3.5-5.1); Sodium 136 mmol/L (136-145); Total Bilirubin 0.3 mg/dL (0.15-1.2)
[2023-11-04 06:37] LABS: Glucose Point of Care 189 mg/dL (70-110)
[2023-11-04 07:39] VITALS: BP 147/94; PULSE 88; RESP 18; TEMP 36.4; O2SAT 95
[2023-11-04] MEDS: insulin lispro 100 unit/1 mL SUBCUT ×2 (08:53→12:14)
[2023-11-04] MEDS: lisinopril 20 mg Tablet PO (08:53)
[2023-11-04] MEDS: gabapentin 300 mg Capsule PO (08:53)
[2023-11-04 11:28] VITALS: BP 115/68; PULSE 86; RESP 18; TEMP 36.6; O2SAT 97
--- NOTE | 2023-11-04 11:46 | P.DS_ITS ---
Discharge Providers Date of Admission: 11/02/23 17:50 Date of Discharge: November 04, 2023 Attending Provider at Admission: Myron Perez MD Attending Provider at Discharge: Myron Perez MD Primary Care Provider: Ac Bah DO Diagnoses at Discharge Discharge Diagnosis (1) Hyperosmolar hyperglycemic state (HHS): Status: Acute Reason for Visit Reason for Visit: abn labs / sent by Dr Del Toro Hospital Course Hospital Course Gerald Chester is a 72 year old male who is a Jehovah witness, does not accept blood products, with a past medical history of lvk-alwqctk-tojpjzack type 2 diabetes mellitus, noncompliant with medications, who presented to endocrinology office, with elevated blood sugars and directed to come to the ER. Patient complains of polyuria, polydipsia, polyphagia, feeling unwell, no chest pain, no palpitations no shortness of breath no abdominal pain no diarrhea, does report dysuria, does report severe peripheral neuropathy, no diabetic ulcers, no recent history of infections, Patient was admitted to [facility] for HHS, monitored in the ICU, on insulin drip, once anion gap closed, blood sugars are reasonable he was transitioned to Humalog, and Lantus, monitored over the next 24 hours, blood sugars remain reasonable, received extensive diabetic education, will be discharged on Lantus 15 units at bedtime, Humalog sliding scale with close follow-up with Dr. Del Toro, for diabetic neuropathy discharged on gabapentin 300 mg twice daily -Inject Lantus 15 units at bedtime -Please monitor your blood sugars closely -Monitor your blood sugars 3 times daily as after meals -Please record your blood sugars, and a blood sugar log -For your NovoLog -Please inject blood sugar after meals based on sliding scale provided -Do not inject insulin if you do not eat as hypoglycemia kills -This is a humalog sliding scale -Insulin sliding ?fingerstick? Insulin ?141-180?0 units/sq 181-220?2 units/sq ?221-260?4 units/sq ?261-300 6 units/sq ?301-350?8 units/sq ?351-400 10 units/sq ?401-450?12 units/sq >450? 14units/sq -If your blood sugar is greater than 500 go to the emergency room -If your blood sugar is less than 60 or at anytime you feel lightheaded or dizzy or diaphoretic or have chest palpitations check your blood sugar, and eat a hard candy or drink orange juice and go immediately to the emergency room -Remember hypoglycemia kills, so if his blood sugar is less than 60 we have to increase it by taking in a sugary meal such as a hard candy or orange juice and go to the emergency room -If you have any questions please call us where here to help Physical Exam Const: COMMON NORMALS: no acute distress and patient oriented x3 Resp: COMMON NORMALS: normal respiratory effort, No retractions, No use of accessory muscles and clear to auscultation bilaterally AUSCULTATION: clear to auscultation bilaterally Cardio: COMMON NORMALS: regular rate, regular rhythm, S1 normal heart sound present and S2 normal heart sound present RATE: regular rate RHYTHM: regular rhythm HEART SOUNDS: S1 normal heart sound present and S2 normal heart sound present GI: COMMON NORMALS: Normal to inspection, nondistended, normoactive bowel sounds present and non-tender Extremity: COMMON NORMALS: no pedal edema Neuro: COMMON NORMALS: patient oriented x3 Psych: COMMON NORMALS: mental status grossly normal Discharge Data Studies Completed and Pending Pending at discharge Category Date Time Status Complete Blood Count w/Auto AM LABS Lab 11/05/23 04:00 Ordered Comprehensive Metabolic Panel AM LABS Lab 11/05/23 04:00 Ordered Magnesium AM LABS Lab 11/05/23 04:00 Ordered Phosphorus AM LABS Lab 11/05/23 04:00 Ordered Laboratory Results WBC 6.60 10^3/uL (3.29-11.43) 11/04/23 05:40 RBC 5.25 10^6/uL (3.85-5.65) 11/04/23 05:40 Hgb 14.30 g/dL (11.27-16.99) 11/04/23 05:40 Hct 44.0 % (37-53) 11/04/23 05:40 MCV 83.8 fl (82-101) 11/04/23 05:40 MCH 27.2 pg (27-33) 11/04/23 05:40 MCHC 32.5 g/dL (30-55) 11/04/23 05:40 RDW 12.5 % (12.1-15.1) 11/04/23 05:40 Plt Count 217 10^3/cmm (157-399) 11/04/23 05:40 MPV 10.2 fL (7.4-10.4) 11/04/23 05:40 Neut % (Auto) 61.2 % 11/04/23 05:40 Lymph % (Auto) 27.0 % 11/04/23 05:40 [place] % (Auto) 8.2 % 11/04/23 05:40 Eos % (Auto) 2.6 % 11/04/23 05:40 Baso % (Auto) 0.5 % 11/04/23 05:40 Neut # (Auto) 4.05 10^3/uL (1.8-7.7) 11/04/23 05:40 Lymph # (Auto) 1.8 10^3/uL (0.8-4.8) 11/04/23 05:40 [place] # (Auto) 0.5 10^3/uL (0.2-0.9) 11/04/23 05:40 Eos # (Auto) 0.2 10^3/uL (0.0-0.8) 11/04/23 05:40 Baso # (Auto) 0.0 10^3/uL (0.0-0.1) 11/04/23 05:40 Nucleated RBC % (auto) 0 % 11/04/23 05:40 Nucleated RBCs # 0.0 /100WBC 11/04/23 05:40 Specimen Type Arterial 11/02/23 15:33 Sample Site Brachial, right 11/02/23 15:33 ABG pH 7.41 (7.35-7.45) 11/02/23 15:33 ABG pCO2 30.5 mmHg (35-45) L 11/02/23 15:33 ABG pO2 91.9 mmHg (80.0-100.0) 11/02/23 15:33 ABG PO2/FiO2 Ratio 0 11/02/23 15:33 ABG HCO3 19.5 mmol/L (22-26) L 11/02/23 15:33 ABG O2 Saturation 98.1 11/02/23 15:33 ABG Base Excess -3.8 mmol/L (-2.0-2.0) L 11/02/23 15:33 Roderick Test N/a 11/02/23 15:33 A-a O2 Gradient 2.1 mmHg (5-10) L 11/02/23 15:33 Hematocrit 50.2 % (42-52) 11/02/23 15:33 Hgb O2 Saturation 96.3 % (95-100) 11/02/23 15:33 Carboxyhemoglobin 1.1 %THgb (0.4-20.1) 11/02/23 15:33 Methemoglobin 0.7 % (0.4-1.5) 11/02/23 15:33 Total Hemoglobin 16.4 g/dL (14-18) 11/02/23 15:33 Sodium 123.0 mmol/L (131-143) L 11/02/23 15:33 Potassium 4.8 mmol/L (3.5-5.0) 11/02/23 15:33 Glucose 906.0 mg/dL (70-115) H 11/02/23 15:33 Ionized Calcium 1.2 mmol/L (1.1-1.4) 11/02/23 15:33 O2 Delivery Device Room air 11/02/23 15:33 FiO2 21.0 % 11/02/23 15:33 Biomedical Specialist ID Amh 11/02/23 15:33 Sodium 136 mmol/L (136-145) 11/04/23 05:40 Potassium 4.2 mmol/L (3.5-5.1) 11/04/23 05:40 Chloride 104 mmol/L (98-107) 11/04/23 05:40 Carbon Dioxide 22 mmol/L (22-29) 11/04/23 05:40 Anion Gap 14.2 (5-19) 11/04/23 05:40 BUN 18 mg/dL (8-23) 11/04/23 05:40 Creatinine 0.7 mg/dL (0.7-1.2) 11/04/23 05:40 GFR Calculation Not Reportable 11/04/23 05:40 Glucose 195 mg/dL (65-115) H 11/04/23 05:40 POC Glucose 189 mg/dL (70-110) H 11/04/23 06:32 Estimat Average Glucose 499 11/02/23 15:22 Hemoglobin A1c 19.0 % (4.0-6.0) H 11/02/23 15:22 Calculated Osmolality 289 mOsm/kg (285-295) 11/04/23 05:40 Lactic Acid 1.9 mmol/L (0.5-2.2) 11/03/23 08:27 Lactic Acid (Sepsis) 2.6 mmol/L (0.5-2.2) H 11/02/23 19:02 Calcium 8.2 mg/dL (8.5-10.5) L 11/04/23 05:40 Phosphorus 2.4 mg/dL (2.5-4.5) L 11/04/23 05:40 Magnesium 1.7 mg/dL (1.7-2.3) 11/04/23 05:40 Total Bilirubin 0.3 mg/dL (0.15-1.2) 11/04/23 05:40 AST 14 U/L (0-40) 11/04/23 05:40 ALT 12 U/L (0-41) 11/04/23 05:40 Alkaline Phosphatase 71 U/L (40-130) 11/04/23 05:40 Troponin T Baseline 16 ng/L (0-15) H 11/02/23 15:22 Troponin T 120 Minute 15.75 ng/L (0-15) H 11/02/23 18:45 Delta Troponin T -0.25 ABS# (0-10) L 11/02/23 18:45 Troponin T Hi Sens 6Hr 15.15 ng/L (0-15) H 11/02/23 22:24 Troponin T Hi Sens 6Hr Delta -0.85 ng/L (0-12) L 11/02/23 22:24 C-Reactive Protein 7.4 mg/L (0.0-4.9) H 11/02/23 15:22 NT-Pro-B Natriuret Pep < 36 pg/mL (0-125) 11/02/23 15:22 Total Protein 6.0 g/dL (6.6-8.7) L 11/04/23 05:40 Albumin 3.1 g/dL (3.5-5.2) L 11/04/23 05:40 Globulin 2.9 g/dL (1.3-4.6) 11/04/23 05:40 Triglycerides 177 mg/dL (0-150) H 11/02/23 18:45 Cholesterol 152 mg/dL (0-200) 11/02/23 18:45 LDL Cholesterol, Calc 80 mg/dL (50-129) 11/02/23 18:45 HDL Cholesterol 37 mg/dL (60-100) L 11/02/23 18:45 LDL/HDL Ratio 2.16 RATIO (0.00-3.22) 11/02/23 18:45 Cholesterol/HDL Ratio 4.11 mg/dL (1.0-5.00) 11/02/23 18:45 Lipase 53 U/L (13-60) 11/02/23 15:22 Procalcitonin 0.13 ng/mL (0-0.5) 11/02/23 15:22 TSH 1.58 uIU/mL (0.27-4.20) 11/02/23 18:45 Urine Color Yellow (Yellow) 11/02/23 16:14 Urine Appearance Clear (CLEAR) 11/02/23 16:14 Urine pH 5 (5-7) 11/02/23 16:14 Ur Specific [place] 1.005 (1.005-1.030) 11/02/23 16:14 Urine Protein Neg (Negative) 11/02/23 16:14 Urine Glucose (UA) 4+ (Normal) H 11/02/23 16:14 Urine Ketones Negative (Negative) 11/02/23 16:14 Urine Blood Neg (Negative) 11/02/23 16:14 Urine Nitrate Negative (Negative) 11/02/23 16:14 Urine Bilirubin Neg (Negative) 11/02/23 16:14 Urine Urobilinogen Norm mg/dL (Negative) 11/02/23 16:14 Ur Leukocyte Esterase Negative (Negative) 11/02/23 16:14 Serum Ketones Negative (Negative) 11/02/23 15:22 Vitals Last Vital Signs Temp 97.8 F 11/04/23 11:28 Pulse 86 11/04/23 11:28 Resp 18 11/04/23 11:28 BP 115/68 11/04/23 11:28 Pulse Ox 97 11/04/23 11:28 O2 Del Method Room Air 11/04/23 11:28 Discharge Plan Discharge Patient Disposition: Home Condition: Stable Prescriptions: New (DME) glucometer testing kit See Rx Instructions .Route .MEDSUPPLY Qty: 1 0RF Rx Instructions: Check BS 3 times daily lancets#100 strips#100 insulin lispro [Humalog U-100 Insulin] 100 unit/mL Solution See Rx Instructions .ROUTE .COMPLEX MDD 40 Qty: 20 0RF Rx Instructions: Inject, subcu, 3 times daily, after meals, based on sliding scale provided lisinopril 20 mg Tablet 20 mg PO DAILY 30 Days Qty: 30 0RF gabapentin 300 mg Capsule 300 mg PO BID 30 Days Qty: 60 0RF insulin glargine 100 unit/mL Solution 15 unit SUBCUT BEDTIME 30 Days Qty: 10 0RF atorvastatin 40 mg Tablet 40 mg PO BEDTIME 30 Days Qty: 30 0RF glucagon HCl [Glucagon (HCl) Emergency Kit] 1 mg recon soln 1 mg IM Q20M PRN (Reason: hypoglycemia) Qty: 1 0RF Rx Instructions: until target blood sugar attained Discharge Orders: Discharge Order (Routine); Ordered 11/04/23 Ordered By: Myron Perez Referrals: Ac Bah DO [Primary Care Provider] - 11/10/23 1:40 pm Camila Del Toro MD [Physician] - 1-3 days Discharge Diet: Cardiac Discharge Activity: Resume usual activity Patient Instructions: Type 2 Diabetes in Adults: New Diagnosis (DC), Diabetic Foot Ulcers (GEN), Diabetes and Your Skin (DC), Hemoglobin A1c (GEN), Mediterranean Diet (GEN), Diabetes and Your Mouth (GEN), What to Do if Your Blood Sugar is Low (ED), Diabetes and Exercise (DC), Hypoglycemia in Adolescents with Diabetes (DC), Type 2 Diabetes Management for Adults (DC), Opioid Safety Activity Restrictions/Additional Instructions: -Inject Lantus 15 units at bedtime -Please monitor your blood sugars closely -Monitor your blood sugars 3 times daily as after meals -Please record your blood sugars, and a blood sugar log -For your NovoLog -Please inject blood sugar after meals based on sliding scale provided -Do not inject insulin if you do not eat as hypoglycemia kills -This is a humalog sliding scale -Insulin sliding ?fingerstick? Insulin ?141-180?0 units/sq 181-220?2 units/sq ?221-260?4 units/sq ?261-300 6 units/sq ?301-350?8 units/sq ?351-400 10 units/sq ?401-450?12 units/sq >450? 14units/sq -If your blood sugar is greater than 500 go to the emergency room -If your blood sugar is less than 60 or at anytime you feel lightheaded or dizzy or diaphoretic or have chest palpitations check your blood sugar, and eat a hard candy or drink orange juice and go immediately to the emergency room -Remember hypoglycemia kills, so if his blood sugar is less than 60 we have to increase it by taking in a sugary meal such as a hard candy or orange juice and go to the emergency room -If you have any questions please call us where here to help Discharge Attestations Time Spent in Discharge Care*: greater than 30 min Quality Metrics Clinical Quality Measures [ No reported AMI, CVA or VTE this stay] Coding Level of Care Code 87084 Total time (in minutes) for Discharge: 45 Diagnoses Hyperosmolar hyperglycemic state (HHS) E11.00
[2023-11-04 11:52] LABS: Glucose Point of Care 245 mg/dL (70-110)
[2023-11-04 13:07] VITALS: BP 115/68; PULSE 86; RESP 18; TEMP 36.6; O2SAT 97
== END 2023-11-04 12:50 | disposition home or self-care (01) | DRG 638 ==
LOC: ER 16:07 → ICU 17:28 → MEDSURG 11-03 17:26
PROVIDERS: Emergency Medicine; Internal Medicine; Admitting Provider Family Medicine; Emergency Provider Family Medicine; PCP Electrodiagnostic Medicine; Visit Provider Family Medicine
DX: E11.00 Type 2 diabetes mellitus with hyperosmolarity without nonketotic hyperglycemic-hyperosmolar coma (NKHHC) (principal); N13.8 Other obstructive and reflux uropathy; E11.42 Type 2 diabetes mellitus with diabetic polyneuropathy; Z91.148 Patient's other noncompliance with medication regimen for other reason; Z87.891 Personal history of nicotine dependence; N40.1 Benign prostatic hyperplasia with lower urinary tract symptoms; Z79.4 Long term (current) use of insulin
CPT/HCPCS: 36415; 36416; 36600; 80048; 80051; 80053; 80061; 81003; 82009; 82044; 82330; 82805; 82962; 83036; 83605; 83690; 83735; 83880; 84100; 84145; 84439; 84443; 84484; 85025; 86140; 93005; 94664; 96365; 96372; 96376; 99214; 99285; C9113; J1650; J1815; J7030; J7050

== ENCOUNTER → 2023-11-11 10:38 | Outpatient (BNVA) | payer MEDICARE, SELFPAY | PROVIDERS: PCP Electrodiagnostic Medicine; Visit Provider Internal Medicine | DX: Z09 Encounter for follow-up examination after completed treatment for conditions other than malignant neoplasm (principal); E11.65 Type 2 diabetes mellitus with hyperglycemia; E78.2 Mixed hyperlipidemia; R20.9 Unspecified disturbances of skin sensation; Z79.4 Long term (current) use of insulin | CPT/HCPCS: 99214 ==

== ENCOUNTER → 2024-01-12 11:29 | Outpatient (BNVA) | payer MEDICARE, SELFPAY | PROVIDERS: PCP Electrodiagnostic Medicine; Visit Provider Internal Medicine | DX: E11.65 Type 2 diabetes mellitus with hyperglycemia (principal); E78.2 Mixed hyperlipidemia; Z09 Encounter for follow-up examination after completed treatment for conditions other than malignant neoplasm; R20.9 Unspecified disturbances of skin sensation; Z79.4 Long term (current) use of insulin; Z79.84 Long term (current) use of oral hypoglycemic drugs | CPT/HCPCS: 99214 ==

== ENCOUNTER 2024-05-25 10:59 | Outpatient (CLI) | payer MEDICARE, SELFPAY ==
[2024-05-25 11:38] LABS: Estmated Average Glucose 260; Hemoglobin A1C 10.7 % (4.0-6.0)
[2024-05-25 11:48] LABS: Alanine Aminotransferase 22 U/L (0-41); Albumin Level 4.4 g/dL (3.5-5.2); Alkaline Phosphatase 83 U/L (40-130); Aspartate Amino Transferase 18 U/L (0-40); Blood Urea Nitrogen 32 mg/dL (8-23); Calcium 9.8 mg/dL (8.5-10.5); Carbon Dioxide 22 mmol/L (22-29); Chloride 100 mmol/L (98-107); Chol HDL Ratio 3.33 mg/dL (1.0-5.00); Cholesterol 143 mg/dL (0-200); Globulin 3.5 g/dL (1.3-4.6); Glucose 268 mg/dL (65-115); HDL Cholesterol 43 mg/dL (60-100); LDL Cholesterol Calculated 72 mg/dL (50-129); LDL HDL Ratio 1.67 RATIO (0.00-3.22); Osmolality Calculated 298 mOsm/kg (285-295); Sodium 136 mmol/L (136-145); Total Bilirubin 0.5 mg/dL (0.15-1.2); Total Protein 7.9 g/dL (6.6-8.7); Triglycerides 140 mg/dL (0-150)
[2024-05-25 14:00] LABS: Creatinine Urine, Random 50 mg/dL (39-259); Microalbum Creatinine Ratio Ur 20 mg/dL (0-20); Microalbumin Random Urine 1 ug/dL (0-20)
== END 2024-05-25 11:00 | disposition home or self-care (01) ==
PROVIDERS: PCP Electrodiagnostic Medicine; Visit Provider Internal Medicine
DX: E11.65 Type 2 diabetes mellitus with hyperglycemia (principal); E78.2 Mixed hyperlipidemia
CPT/HCPCS: 36415; 80053; 80061; 82044; 83036

== ENCOUNTER → 2024-06-01 08:56 | Outpatient (BNVA) | payer MEDICARE, SELFPAY | PROVIDERS: PCP Electrodiagnostic Medicine; Visit Provider Internal Medicine | DX: E11.65 Type 2 diabetes mellitus with hyperglycemia (principal); E78.2 Mixed hyperlipidemia; Z09 Encounter for follow-up examination after completed treatment for conditions other than malignant neoplasm; R20.9 Unspecified disturbances of skin sensation; Z79.4 Long term (current) use of insulin; Z79.84 Long term (current) use of oral hypoglycemic drugs | CPT/HCPCS: 99214 ==

== ENCOUNTER 2024-10-21 20:30 | Emergency (ER) | payer MEDICARE, SELFPAY ==
[2024-10-21 20:31] VITALS: BP 83/52; PULSE 97; RESP 16; TEMP 36.4; O2SAT 95; BMI 25.0
--- NOTE | 2024-10-21 21:19 | XRR_ITS ---
PROCEDURE INFORMATION: Exam: XR Left Foot Exam date and time: 10/21/2024 9:43 PM Age: 73 years old Clinical indication: C/O left foot pain and unable to bear weight. Slight swelling and erythema to lateral side of foot. TECHNIQUE: Imaging protocol: Radiologic exam of the left foot. Views: 3 or more views. COMPARISON: No relevant prior studies available. 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 Soft tissues: Normal. XR/XR foot LT min 3V* [id number] IMPRESSION: No acute findings.
[2024-10-21 21:45] LABS: Basophils % 0.4 %; Eosinophils # 0.2 10^3/uL (0.0-0.8); Eosinophils % 1.8 %; Lymphocytes # 1.8 10^3/uL (0.8-4.8); Lymphocytes % 20.5 %; Mean Corpuscular HGB Conc 32.1 g/dL (30-55); Mean Corpuscular Hemoglobin 27.5 pg (27-33); Mean Corpuscular Volume 85.6 fl (82-101); Monocytes # 0.9 10^3/uL (0.2-0.9); Monocytes % 10.2 %; Neutrophils # 5.98 10^3/uL (1.8-7.7); Neutrophils % 66.7 %; Nucleated Red Blood Cells % 0 %; Platelet Count 243 10^3/cmm (157-399); Red Blood Count 5.61 10^6/uL (3.85-5.65); Red Cell Distribution Width 13.2 % (12.1-15.1); White Blood Count 8.98 10^3/uL (3.29-11.43)
[2024-10-21 22:03] LABS: Lactic Sepsis W/Reflex 2.6 mmol/L (0.5-2.2)
[2024-10-21 22:04] LABS: Alanine Aminotransferase 19 U/L (0-41); Alkaline Phosphatase 77 U/L (40-130); Anion Gap 21.6 (5-19); Aspartate Amino Transferase 14 U/L (0-40); Blood Urea Nitrogen 43 mg/dL (8-23); C Reactive Protein 6.7 mg/L (0.0-4.9); Calcium 9.7 mg/dL (8.5-10.5); Carbon Dioxide 22 mmol/L (22-29); Chloride 94 mmol/L (98-107); Creatinine Clr Calc Pharmacy 66.4486; Globulin 3.3 g/dL (1.3-4.6); Glucose 261 mg/dL (65-115); Osmolality Calculated 296 mOsm/kg (285-295); Potassium 4.6 mmol/L (3.5-5.1); Sodium 133 mmol/L (136-145); Total Bilirubin 0.3 mg/dL (0.15-1.2); Total Protein 7.3 g/dL (6.6-8.7)
[2024-10-21] MEDS: sodium chloride 0.9% 1,000 ML 999 ML IV (22:07)
[2024-10-21 22:23] LABS: Erythrocyte Sedimentation Rate 24 mm/hr (0-10)
[2024-10-21 22:30] VITALS: BP 74/52; PULSE 90; O2SAT 97
[2024-10-21 23:00] VITALS: BP 79/57; PULSE 90; O2SAT 95
--- NOTE | 2024-10-21 23:13 | ED_ITS ---
HPI - Extremity Problem 2 General: Chief complaint: Extremity Injury, Lower Stated complaint: diabetic/foot swollen and red Time Seen by Provider: 10/21/24 21:03 History of Present Illness: This patient is a 73-year-old white male who presents to the ER complaining of left heel pain. States this started about 10 days ago. Has become swollen and red. No fever. No drainage. No wound. Patient does have a history of insulin-dependent diabetes. Related Data Previous Rx's ?Medication ?Instructions ?Recorded glucagon HCl 1 mg solution for 1 mg IM Q20M PRN hypogl ycemia #1 ea 11/04/23 injection (Glucagon (HCl) Emergency Kit) glucometer testing kit #1 ea 11/04/23 gabapentin 300 mg capsule 300 mg PO BID 30 days #60 ca ps 11/11/23 insulin lispro 100 unit/mL See Rx Instructions SUBCUT TID #15 06/01/24 subcutaneous pen (Humalog KwikPen mL (U-100) Insulin) empagliflozin 25 mg tablet See Rx Instructions .Route 06/06/24 (Jardiance) .COMPLEX #90 tabs insulin glargine 100 unit/mL 20 unit (0.2 mL) SUBCUT D AILY #20 10/14/24 subcutaneous solution (Lantus mL U-100 Insulin) insulin lispro 100 unit/mL 8 unit (0.08 mL) SUBCUT TID #10 mL 10/14/24 subcutaneous solution (Humalog U-100 Insulin) insulin syringe-needle U-100 0.5 #100 ea 10/14/24 mL 30 gauge x 1/2 (BD Insulin Syringe Ultra-Fine) cephalexin 500 mg capsule 500 mg PO Q6H 10 days #40 ca ps 10/21/24 hydrocodone 5 mg-acetaminophen 325 1 tab PO Q4H PRN pa in #30 tabs 10/21/24 mg tablet Allergies Allergy/AdvReac Type Severity Reaction Status Date / Time No Known Allergies Allergy Verified 10/13/24 16:31 Review of Systems 2 General: Reports: 10 or more systems reviewed and unremarkable except in HPI and below Musc: Reports: other (Left heel pain, erythema and swelling) PFSH ED 2 PFSH: Medical History BPH loc w urin obs/LUTS Acute urinary retention Diabetes type 2, uncontrolled Lumbar disc disease Polyneuropathy, peripheral sensorimotor axonal Lumbar stenosis with neurogenic claudication Intervertebral disc disorder with radiculopathy of lumbosacral region Surgical History History of hernia surgery (2018) Dr. Looney History of lumbar surgery (1970) Herniated disc repair. [facility] Family History Sister Diabetes Mother , at age 93 Diabetes Father , at age 57 Suicide Social History Smoking and tobacco/nicotine status: never used tobacco/nicotine Alcohol intake: never Substance/Drug Use: never Household members: spouse Marital status: Current occupational status: retired Physical Exam 2 Const: COMMON NORMALS: no acute distress, patient oriented x3 and no limitations GENERAL APPEARANCE: cooperative and comfortable HENMT: COMMON NORMALS: normocephalic, atraumatic, Normal nasal mucous membranes and turbinates present, moist oral mucous membranes and oropharynx normal HEAD & SCALP: normal to inspection, normocephalic and atraumatic F DANY & SINUS: normal facial exam NOSE: Normal nasal mucous membranes and turbinates present Eye: COMMON NORMALS: Equal, round and reactive pupils present, EOMs intact bilaterally and conjunctivae normal GENERAL EYE: appearance normal, both eyes and all related structures CONJUNCTIVA: Yes conjunctivae normal PUPIL: Yes Equal, round and reactive pupils present Neck/C-Spine: COMMON NORMALS: supple and no JVD Chest: COMMONS NORMALS: normal inspection of the chest Resp: COMMON NORMALS: normal respiratory effort and clear to auscultation bilaterally AUSCULTATION: clear to auscultation bilaterally Cardio: COMMON NORMALS: no JVD, regular rate, regular rhythm, No gallops present (Cardio), No murmurs present (Cardio) and No rub (Cardio) RATE: r egular rate RHYTHM: regular rhythm GI: COMMON NORMALS: Normal to inspection, nondistended, normoactive bowel sounds present, Soft to palpation and non-tender AUSCULTATION: Yes normoactive bowel sounds PALPATION: Yes Soft to palpation : COMMON NORMALS: Yes no CVA tenderness BLADDER/KIDNEY EXAM: Yes no CVA tenderness Back/Pelvis: COMMON NORMALS: no CVA tenderness and thoracic and lumbar spine normal to inspection Extremity: COMMON NORMALS: normal to inspection NARRATIVE EXTREMITY EXAM: The left heel was tender to palpation, erythematous and slightly swollen. No open wounds. Neuro: COMMON NORMALS: patient oriented x3 and CN's II-XII intact bilaterally Psych: COMMON NORMALS: mental status grossly normal, Normal thought process present and cooperative THOUGHT PROCESS: Normal thought process present Skin: COMMON NORMALS: no rashes or lesions noted, turgor normal and no jaundice GENERAL SKIN EXAM: no rashes or lesions noted and turgor normal Course 2 Vital Signs: Vital signs: Vital Signs Temperature 97.6 F 10/21/24 20:31 Pulse Rate 97 10/21/24 20:31 Respiratory Rate 16 10/21/24 20:31 Blood Pressure 83/52 10/21/24 20:31 Pulse Oximetry 95 10/21/24 20:31 Oxygen Delivery Me thod Room Air 10/21/24 20:31 MDM - Extremity (Nontraumatic) Medical Decision Making X-rays of the left foot were normal. CBC was normal. CMP revealed a BUN of 43 creatinine of 1.2. Blood sugar was 261. Lactic acid 2.6. CRP 6.7. Patient was given 1 L bolus of normal saline and 2 g of Ancef IV. He was also given 2 mg of morphine and 4 mg of Zofran for his pain. He was subsequently discharged in stable condition with prescription for Keflex and hydrocodone. Recommended he follow-up with his primary care provider within 1 week for recheck. Lab Data 10/21/24 21:35 10/21/24 21:35 Radiology Impressions Foot X-Ray 10/21/24 21:19 IMPRESSION: No acute findings. Laboratory Results WBC 8.98 10^3/uL (3.29-11.43) 10/21/24 21:35 RBC 5.61 10^6/uL (3.85-5.65) 10/21/24 21:35 Hgb 15.40 g/dL (11.27-16.99) 10/21/24 21:35 Hct 48.0 % (37-53) 10/21/24 21:35 MCV 85.6 fl (82-101) 10/21/24 21:35 MCH 27.5 pg (27-33) 10/21/24 21:35 MCHC 32.1 g/dL (30-55) 10/21/24 21:35 RDW 13.2 % (12.1-15.1) 10/21/24 21:35 Plt Count 243 10^3/cmm (157-399) 10/21/24 21:35 MPV 10.0 fL (7.4-10.4) 10/21/24 21:35 Neut % (Auto) 66.7 % 10/21/24 21: Lymph % (Auto) 20.5 % 10/21/24 21:35 [place] % (Auto) 10.2 % 10/21/24 21: Eos % (Auto) 1.8 % 10/21/24 21: Baso % (Auto) 0.4 % 10/21/24 21: Neut # (Auto) 5.98 10^3/uL (1.8-7.7) 10/21/24 21: Lymph # (Auto) 1.8 10^3/uL (0.8-4.8) 10/21/24 21:35 [place] # (Auto) 0.9 10^3/uL (0.2-0.9) 10/21/24 21: Eos # (Auto) 0.2 10^3/uL (0.0-0.8) 10/21/24 21:35 Baso # (Auto) 0.0 10^3/uL (0.0-0.1) 10/21/24 21: Nucleated RBC % (auto) 0 % 10/21/24 21: Nucleated RBCs # 0.0 /100WBC 10/21/24 21:35 ESR 24 mm/hr (0-10) H 10/21/24 21:35 Sodium 133 mmol/L (136-145) L 10/21/24 21:35 Potassium 4.6 mmol/L (3.5-5.1) 10/21/24 21:35 Chloride 94 mmol/L (98-107) L 10/21/24 21:35 Carbon Dioxide 22 mmol/L (22-29) 10/21/24 21:35 Anion Gap 21.6 (5-19) H 10/21/24 21:35 BUN 43 mg/dL (8-23) H 10/21/24 21:35 Creatinine 1.2 mg/dL (0.7-1.2) 10/21/24 21:35 GFR Calculation Not Reportable 10/21/24 21:35 Glucose 261 mg/dL (65-115) H 10/21/24 21:35 Calculated Osmolality 296 mOsm/kg (285-295) H 10/21/24 21:35 Lactic Acid 2.6 mmol/L (0.5-2.2) H 10/21/24 21:35 Calcium 9.7 mg/dL (8.5-10.5) 10/21/24 21:35 Total Bilirubin 0.3 mg/dL (0.15-1.2) 10/21/24 21:35 AST 14 U/L (0-40) 10/21/24 21:35 ALT 19 U/L (0-41) 10/21/24 21:35 Alkaline Phosphatase 77 U/L (40-130) 10/21/24 21:35 C-Reactive Protein 6.7 mg/L (0.0-4.9) H 10/21/24 21:35 Total Protein 7.3 g/dL (6.6-8.7) 10/21/24 21:35 Albumin 4.0 g/dL (3.5-5.2) 10/21/24 21:35 Globulin 3.3 g/dL (1.3-4.6) 10/21/24 21:35 All radiology interpretation(s) finalized by discharge Discharge Plan Discharge Patient Disposition: Home Clinical Impression: Cellulitis Qualifiers: Site of cellulitis: extremity Site of cellulitis of extremity: lower extremity Laterality: left Qualified Code(s): L03.116 - Cellulitis of left lower limb Condition: Stable Prescriptions: New hydrocodone-acetaminophen 5-325 mg tablet 1 tab PO Q4H PRN (Reason: pain) Qty: 30 0RF cephalexin 500 mg capsule 500 mg PO Q6H 10 Days Qty: 40 0RF No Action gabapentin 300 mg capsule 300 mg PO BID 30 Days Qty: 60 1RF insulin glargine [Lantus U-100 Insulin] 100 unit/mL solution 20 unit SUBCUT DAILY Qty: 20 1RF insulin lispro [Humalog U-100 Insulin] 100 unit/mL solution 8 unit SUBCUT TID Qty: 10 2RF (DME) insulin syringe-needle U-100 [BD Insulin Syringe Ultra-Fine] 0.5 mL 30 gauge x 1/2 syringe See Rx Instructions .ROUTE .COMPLEX Qty: 100 1RF Dose Instruction: USE DIRECTED Rx Instructions: USE DIRECTED insulin lispro [Humalog KwikPen Insulin] 100 unit/mL insulin pen See Rx Instructions SUBCUT TID Qty: 15 1RF Rx Instructions: sliding scale subcutaneously three times daily; 100-150 2U, 151-200 4U, 201- 250 6U and 251-or higher 8U Jardiance 25 mg tablet See Rx Instructions .ROUTE .COMPLEX Qty: 90 1RF Dose Instruction: TAKE 1 TABLET BY MOUTH EVERY DAY Rx Instructions: TAKE 1 TABLET BY MOUTH EVERY DAY Glucagon (HCl) Emergency Kit 1 mg recon soln 1 mg IM Q20M PRN (Reason: hypoglycemia) Qty: 1 0RF Rx Instructions: until target blood sugar attained (DME) glucometer testing kit See Rx Instructions .Route .MEDSUPPLY Qty: 1 0RF Rx Instructions: Check BS 3 times daily lancets#100 strips#100 Discharge Orders: Discharge ED (Routine); Ordered 10/21/24 Ordered By: Oswaldo Stover Referrals: Ac Bah DO [Primary Care Provider] - Patient Instructions: Cellulitis, Opioid Safety, Pain Management Activity Restrictions/Additional Instructions: Follow-up with your primary care physician within 1 week for recheck. Print Language: Yoruba Coding Level of Care Code ED Toll Test Worker for Daniel Lemus
[2024-10-21] MEDS: ondansetron 2 mg/ML SDV 2 mL 4 MG IVP (23:14)
[2024-10-21] MEDS: morphine 4 mg/mL SDV 1 mL 2 MG IVP (23:14)
[2024-10-21 23:30] VITALS: BP 99/57; PULSE 88; O2SAT 96
[2024-10-21 23:30] LABS: Reflex Lactate Order REFLEX LACTIC ORDERD
[2024-10-22] VITALS: BP 94/48; PULSE 88; O2SAT 93
[2024-10-22 01:02] VITALS: BP 95/64; PULSE 88; O2SAT 94
== END 2024-10-22 00:45 | disposition home or self-care (01) ==
PROVIDERS: Emergency Medicine; Emergency Provider Emergency Medicine; PCP Electrodiagnostic Medicine
DX: L03.116 Cellulitis of left lower limb (principal); Z79.4 Long term (current) use of insulin; E11.42 Type 2 diabetes mellitus with diabetic polyneuropathy
CPT/HCPCS: 36415; 73630; 80053; 83605; 85025; 85651; 86140; 96365; 96366; 96375; 99284; J0690; J2270; J2405; J7030

== ENCOUNTER → 2025-01-19 08:18 | Outpatient (BNVA) | payer MEDICARE, SELFPAY | PROVIDERS: PCP Electrodiagnostic Medicine; Visit Provider Internal Medicine | DX: E11.65 Type 2 diabetes mellitus with hyperglycemia (principal); E78.2 Mixed hyperlipidemia; Z09 Encounter for follow-up examination after completed treatment for conditions other than malignant neoplasm | CPT/HCPCS: 99214 ==

== ENCOUNTER → 2025-02-02 11:19 | Outpatient (BNVA) | payer MEDICARE, SELFPAY | PROVIDERS: PCP Electrodiagnostic Medicine; Visit Provider Podiatrist Foot & Ankle Surgery | DX: E11.42 Type 2 diabetes mellitus with diabetic polyneuropathy (principal); G62.9 Polyneuropathy, unspecified; Z79.4 Long term (current) use of insulin | CPT/HCPCS: 99203 ==

== ENCOUNTER → 2025-04-20 08:10 | Outpatient (BNVA) | payer MEDICARE, SELFPAY | PROVIDERS: PCP Electrodiagnostic Medicine; Visit Provider Internal Medicine | DX: E11.42 Type 2 diabetes mellitus with diabetic polyneuropathy (principal); E11.65 Type 2 diabetes mellitus with hyperglycemia; Z09 Encounter for follow-up examination after completed treatment for conditions other than malignant neoplasm; E78.2 Mixed hyperlipidemia; R20.9 Unspecified disturbances of skin sensation | CPT/HCPCS: 36415; 80053; 80061; 82044; 83036; 99214 ==

== ENCOUNTER 2025-06-14 09:40 | Outpatient (CLI) | payer MEDICARE, SELFPAY ==
[2025-06-14 14:24] LABS: Estmated Average Glucose 272; Hemoglobin A1C 11.1 % (4.0-6.0)
[2025-06-14 14:26] LABS: Alanine Aminotransferase 17 U/L (0-41); Albumin Level 4.8 g/dL (3.5-5.2); Alkaline Phosphatase 76 U/L (40-130); Anion Gap 19.4 (5-19); Aspartate Amino Transferase 17 U/L (0-40); Blood Urea Nitrogen 21 mg/dL (8-23); Calcium 10.0 mg/dL (8.5-10.5); Carbon Dioxide 24 mmol/L (22-29); Chloride 98 mmol/L (98-107); Cholesterol 146 mg/dL (0-200); Globulin 3.5 g/dL (1.3-4.6); Glucose 206 mg/dL (65-115); HDL Cholesterol 48 mg/dL (60-100); Osmolality Calculated 293 mOsm/kg (285-295); Potassium 4.4 mmol/L (3.5-5.1); Sodium 137 mmol/L (136-145); Total Protein 8.3 g/dL (6.6-8.7); Triglycerides 119 mg/dL (0-150)
[2025-06-14 14:27] LABS: Creatinine Urine, Random 57 mg/dL (39-259); Microalbum Creatinine Ratio Ur 18 mg/dL (0-20)
== END 2025-06-14 09:41 | disposition home or self-care (01) ==
PROVIDERS: PCP Electrodiagnostic Medicine; Visit Provider Internal Medicine
DX: E11.65 Type 2 diabetes mellitus with hyperglycemia (principal); E11.42 Type 2 diabetes mellitus with diabetic polyneuropathy; E78.2 Mixed hyperlipidemia
CPT/HCPCS: 36415; 80053; 80061; 82044; 83036